=== PATIENT | male | born 1935 | race Caucasian/White ===

== ENCOUNTER 2017-04-15 14:43 | Inpatient (IN) | payer OTHER, MEDICARE ==
[~2017-04-15] VITALS: Ht 170.2 cm; Wt 68.0 kg
[2017-04-15 15:09] VITALS: BP 167/74; PULSE 85; RESP 18; TEMP 98; O2SAT 97
--- NOTE | 2017-04-15 15:33 | PD ---
HPI Chief Complaint: Fall Time Seen by Provider: 14:55 Travel History International Travel<30 days: No Contact w/Intl Traveler<30days: No Traveled to known affect area: No History of Present Illness HPI Patient is an 81-year-old male who presents to emergency room with complaints of fall. Patient reports that he lives at home by himself, reports that sometimes his son stops by the house to help him out. Patient reports that sometime this morning, he tripped on close on the floor, reports that he fell forward and hit his head. Patient reports that he was unable to get up by himself, he did have to wait for son to come home to help him. Patient reports that when he fell, he fell forward hitting his head on the floor. Patient is unsure if he suffered any loss of consciousness. Patient reports that he does take an aspirin a day, currently does not take any other anticoagulants. Patient reports at this time, he only has pains to his right forearm as he did suffer abrasions and skin tears to his right forearm. PFSH Past Medical History Narrative Medical Patient currently taking simvastatin, mirtazapine, allopurinol, metoprolol, omeprazole, fluoxetine, aspirin, vitamin D, vitamin B12 High Cholesterol: Yes GERD: Yes Hypertension: Yes Past Surgical History Surgical History: Unable to Obtain Social History Tobacco Use: No Allergies-Medications (Allergen,Severity, Reaction): Coded Allergies: No Known Allergies (Unverified , 04/15/17) Reported Meds & Prescriptions Reported Meds & Active Scripts Active Reported Aspirin Adult Low Strength (Aspirin) 81 Mg Tabdr 81 Mg PO DAILY Vitamin B-12 (Cyanocobalamin) Unknown Strength Tab 1 Tab PO DAILY Vitamin D-1000 (Cholecalciferol) 1,000 Unit Tab 1,000 Units PO DAILY Metoprolol Tartrate 25 Mg Tab 12.5 Mg PO BID Allopurinol 100 Mg Tab 100 Mg PO DAILY Remeron (Mirtazapine) 15 Mg Tab 7.5 Mg PO HS Zocor (Simvastatin) 10 Mg Tab 5 Mg PO HS Review of Systems General / Constitutional: No: Fever Eyes: No: Visual changes HENT: No: Headaches Cardiovascular: No: Chest Pain or Discomfort Respiratory: No: Shortness of Breath Gastrointestinal: No: Abdominal Pain Genitourinary: No: Dysuria Musculoskeletal: Positive: Pain (right sided forearm pain), Other (gait instability) Skin: No Rash Neurologic: No: Weakness Psychiatric: No: Depression Endocrine: No: Polydipsia Hematologic/Lymphatic: No: Easy Bruising Physical Exam Narrative GENERAL: Mild distress SKIN: Focused skin assessment warm/dry. Skin tears to right forearm HEAD: Atraumatic. Normocephalic. EYES: Pupils equal and round. No scleral icterus. No injection or drainage. ENT: No nasal bleeding or discharge. Mucous membranes pink and moist. NECK: Trachea midline. No JVD. CARDIOVASCULAR: Regular rate and rhythm. No murmur appreciated. RESPIRATORY: No accessory muscle use. Clear to auscultation. Breath sounds equal bilaterally. GASTROINTESTINAL: Abdomen soft, non-tender, nondistended. Hepatic and splenic margins not palpable. MUSCULOSKELETAL: No clubbing. No cyanosis. No edema. NEUROLOGICAL: Awake and alert. Data Data Last Documented VS Vital Signs Date Time Temp Pulse Resp B/P (MAP) Pulse Ox O2 Delivery O2 Flow Rate FiO2 04/15/17 17:32 95 16 121/81 (94) 95 Room Air 04/15/17 15:09 98.0 Orders Orders Electrocardiogram (04/15/17 15:15) Complete Blood Count With Diff (04/15/17 15:15) Comprehensive Metabolic Panel (04/15/17 15:15) Magnesium (Mg) (04/15/17 15:15) Ckmb (Isoenzyme) Profile (04/15/17 15:15) Troponin I (04/15/17 15:15) Act Partial Throm Time (Ptt) (04/15/17 15:15) Prothrombin Time / Inr (Pt) (04/15/17 15:15) Urinalysis - C+S If Indicated (04/15/17 15:15) Chest, Single Ap (04/15/17 15:15) Ct Brain W/O Iv Contrast(Rout) (04/15/17 15:15) Ct Cerv Spine W/O Contrast (04/15/17 15:15) Ecg Monitoring (04/15/17 15:15) Iv Access Insert/Monitor (04/15/17 15:15) Oximetry (04/15/17 15:15) Forearm (2vws) (04/15/17 ) CKMB (04/15/17 16:02) CKMB% (04/15/17 16:02) Sodium Chlor 0.9% 1000 Ml Inj (Ns 1000 M (04/15/17 18:15) Admit Order (Ed Use Only) (04/15/17 19:06) Labs Laboratory Tests Test 04/15/17 16:00 04/15/17 16:02 04/15/17 17:30 Prothrombin Time 10.6 SEC Prothromb Time International Ratio 1.0 RATIO Activated Partial Thromboplast Time 26.6 SEC White Blood Count 14.7 TH/MM3 Red Blood Count 3.91 MIL/MM3 Hemoglobin 12.1 GM/DL Hematocrit 35.9 % Mean Corpuscular Volume 91.8 FL Mean Corpuscular Hemoglobin 30.9 PG Mean Corpuscular Hemoglobin Concent 33.7 % Red Cell Distribution Width 14.0 % Platelet Count 181 TH/MM3 Mean Platelet Volume 7.3 FL Neutrophils (%) (Auto) 87.9 % Lymphocytes (%) (Auto) 4.9 % Monocytes (%) (Auto) 6.7 % Eosinophils (%) (Auto) 0.1 % Basophils (%) (Auto) 0.4 % Neutrophils # (Auto) 12.9 TH/MM3 Lymphocytes # (Auto) 0.7 TH/MM3 Monocytes # (Auto) 1.0 TH/MM3 Eosinophils # (Auto) 0.0 TH/MM3 Basophils # (Auto) 0.1 TH/MM3 CBC Comment DIFF FINAL Differential Comment Blood Urea Nitrogen 24 MG/DL Creatinine 1.32 MG/DL Random Glucose 87 MG/DL Total Protein 6.6 GM/DL Albumin 3.8 GM/DL Calcium Level 8.9 MG/DL Magnesium Level 1.9 MG/DL Alkaline Phosphatase 83 U/L Aspartate Amino Transf (AST/SGOT) 46 U/L Alanine Aminotransferase (ALT/SGPT) 27 U/L Total Bilirubin 1.2 MG/DL Sodium Level 140 MEQ/L Potassium Level 4.2 MEQ/L Chloride Level 107 MEQ/L Carbon Dioxide Level 21.8 MEQ/L Anion Gap 11 MEQ/L Estimat Glomerular Filtration Rate 52 ML/MIN Total Creatine Kinase 935 U/L Creatine Kinase MB 19.3 NG/ML Creatine Kinase MB % 2.1 % Troponin I 0.02 NG/ML Urine Color YELLOW Urine Turbidity CLEAR Urine pH 6.0 Urine Specific [place] 1.017 Urine Protein TRACE mg/dL Urine Glucose (UA) NEG mg/dL Urine Ketones 40 mg/dL Urine Occult Blood NEG Urine Nitrite NEG Urine Bilirubin NEG Urine Urobilinogen 2.0 MG/DL Urine Leukocyte Esterase NEG Urine RBC LESS THAN 1 /hpf Urine WBC LESS THAN 1 /hpf Microscopic Urinalysis Comment CULT NOT INDICATED MDM Medical Decision Making Medical Screen Exam Complete: Yes Emergency Medical Condition: Yes Medical Record Reviewed: Yes Interpretation(s) Vital Signs Date Time Temp Pulse Resp B/P (MAP) Pulse Ox O2 Delivery O2 Flow Rate FiO2 04/15/17 15:09 98.0 85 18 167/74 (105) 97 Differential Diagnosis ICH, Electrolyte abnormality, forearm strain/fracture, electrolyte abnormality, gait dysfunction Narrative Course During the course of the patients emergency department visit, the patients history, examination, and differential diagnosis were reviewed with the patient. The patient was placed on a monitoring analyst with oximetry and frequent blood pressure monitoring. The patient had an IV access obtained and blood work sent for analysis. The patients laboratory studies were reviewed and remarkable for: CBC & BMP Diagram 04/15/17 16:02 Total Protein 6.6, Albumin 3.8, Calcium Level 8.9, Magnesium Level 1.9, Alkaline Phosphatase 83, Aspartate Amino Transf (AST/SGOT) 46 H, Alanine Aminotransferase (ALT/SGPT) 27, Total Bilirubin 1.2 H CK MB 19.3, trop 0.02, ck total 935 UA: 40 ketones, neg nitrite, neg leuk esterase Radiology studies were reviewed and remarkable for: Last Impressions Head CT 04/15/171514 Signed Impressions: Service Date/Time: April 16:45 - CONCLUSION: 1. No acute intracranial process. 2. No evidence of acute infarct, hemorrhage, mass or edema. Daniel Thompson MD Chest X-Ray 04/15/171514 Signed Impressions: Service Date/Time: April 15:33 - CONCLUSION: 1. No acute cardiopulmonary disease. Mani Nicholas MD Cervical Spine CT 04/15/171514 Signed Impressions: Service Date/Time: April 16:47 - CONCLUSION: 1. No evidence of acute fracture or traumatic listhesis. 2. Moderate degenerative disc disease. 3. Left sided mild to moderate facet arthropathy. Daniel Thompson MD Radius/Ulna X-Ray 04/15/17 0000 Signed Impressions: Service Date/Time: April 15:36 - CONCLUSION: 1. Very small nearly punctate calcified density projecting along the ulnar aspect of the wrist soft tissues. 2. No acute fracture or dislocation. Mani Nicholas MD Patient's family at bedside, reports that patient was completely independent and a week ago, patient began to appear more altered. Reports that he has experienced tremors, has had episodes of forgetfulness and has been more dependent for ADL's at baseline. Reports that his goal is to get his father to move in with him soon . Patient at this time cannot be discharged from the hospital as he is unsafe to be discharged to home. He is not ambulatory and weak at this time; patient appears decompensated. Plan to admit overnight for rehydration and for PT evaluation. Diagnosis Primary Impression: Gait instability Additional Impressions: Altered mental status, unspecified Renal insufficiency Admitting Information Admitting Physician Requests: Observation Traci Hair DO Apr 15, 2017 15:33
--- NOTE | 2017-04-15 15:58 | RADRPT ---
EXAM DATE/TIME: 04/15/2017 15:33 [facility] COMPARISON: No previous studies available for comparison. INDICATIONS : Chest discomfort; fall today. MEDICAL HISTORY : Hypertension. SURGICAL HISTORY : None. ENCOUNTER: Initial ACUITY: 1 day PAIN SCORE: Non-responsive. LOCATION: Bilateral chest FINDINGS: A single view of the chest demonstrates the lungs to be symmetrically aerated without evidence of mas s, infiltrate or effusion. The cardiomediastinal contours are unremarkable. Osseous structures are intact. CONCLUSION: 1. No acute cardiopulmonary disease. Mani Nicholas MD on April 15, 2017 at 15:55 Board Certified Radiologist. This report was verified electronically.
--- NOTE | 2017-04-15 15:59 | RADRPT ---
EXAM DATE/TIME: 04/15/2017 15:36 [facility] COMPARISON: No previous studies available for comparison. INDICATIONS : Right forearm pain; fall today. MEDICAL HISTORY : None. SURGICAL HISTORY : None. ENCOUNTER: Initial ACUITY: 1 day PAIN SCORE: Non-responsive. LOCATION: Right forearm FINDINGS: Two view examination of the right forearm demonstrates no evidence of fracture or dislocation. Bony mineralization is normal. There is a very small nearly punctate calcified density projecting along t he ulnar aspect of the wrist. The soft tissue structures are intact. CONCLUSION: 1. Very small nearly punctate calcified density projecting along the ulnar aspect of the wrist soft t issues. 2. No acute fracture or dislocation. Mani Nicholas MD on April 15, 2017 at 15:56 Board Certified Radiologist. This report was verified electronically.
[2017-04-15 16:06] VITALS: O2SAT 97
[2017-04-15 16:16] LABS: AUTOMATED NEUTROPHIL # 12.9 TH/MM3 (1.8-7.7); BASOPHIL # 0.1 TH/MM3 (0-0.2); BASOPHIL % 0.4 % (0.0-2.0); EOSINOPHIL % 0.1 % (0.0-4.0); HEMATOCRIT 35.9 % (39.0-51.0); HEMO FLAGS DIFF FINAL; LYMPH % 4.9 % (9.0-44.0); LYMPHOCYTE # 0.7 TH/MM3 (1.0-4.8); MEAN CELL VOLUME 91.8 FL (80.0-100.0); MEAN CORPUSCULAR HEMOGLOBIN 30.9 PG (27.0-34.0); MEAN CORPUSCULAR HGB CONC 33.7 % (32.0-36.0); MONO % 6.7 % (0.0-8.0); NEUT % 87.9 % (16.0-70.0); PLATELET COUNT 181 TH/MM3 (150-450); RED BLOOD COUNT 3.91 MIL/MM3 (4.50-5.90); WHITE BLOOD COUNT 14.7 TH/MM3 (4.0-11.0)
[2017-04-15 16:29] LABS: APTT (PATIENT) 26.6 SEC (24.3-30.1); PROTHROMBIN TIME - PATIENT 10.6 SEC (9.8-11.6)
[2017-04-15 16:42] LABS: ALT (GPT) 27 U/L (12-78); ANION GAP 11 MEQ/L (5-15); BICARBONATE 21.8 MEQ/L (21.0-32.0); BLOOD UREA NITROGEN 24 MG/DL (7-18); CHLORIDE 107 MEQ/L (98-107); GLOMERULAR FILTRATION RATE 52 ML/MIN (>89); MAGNESIUM 1.9 MG/DL (1.5-2.5); POTASSIUM 4.2 MEQ/L (3.5-5.1); SODIUM (NA) 140 MEQ/L (136-145)
[2017-04-15 16:56] LABS: ALKALINE PHOSPHATASE 83 U/L (45-117); AST (GOT) 46 U/L (15-37); CREATINE KINASE 935 U/L (39-308); TOTAL BILIRUBIN ADULT 1.2 MG/DL (0.2-1.0)
[2017-04-15 17:08] LABS: CKMB 19.3 NG/ML (0.5-3.6)
--- NOTE | 2017-04-15 17:10 | RADRPT ---
EXAM DATE/TIME: 04/15/2017 16:45 [facility] COMPARISON: No previous studies available for comparison. INDICATIONS : Trauma post fall this am . RADIATION DOSE: 69.00 CTDIvol (mGy) MEDICAL HISTORY : UNKNOWN PT AMS. SURGICAL HISTORY : UNKNOWN PT AMS. ENCOUNTER: Initial ACUITY: 1 day PAIN SCALE: 0/10 LOCATION: Bilateral cranial TECHNIQUE: Multiple contiguous axial images were obtained of the head. Using automated exposure control and adj ustment of the mA and/or kV according to patient size, radiation dose was kept as low as reasonably a chievable to obtain optimal diagnostic quality images. DICOM format image data is available electro nically for review and comparison. FINDINGS: CEREBRUM: Generalized volume loss is noted. There is no evidence of acute infarct, hemorrhage, mass or edema. T here are no extra-axial fluid collections. POSTERIOR FOSSA: The cerebellum and brainstem are intact. The 4th ventricle is midline. The cerebellopontine angle i s unremarkable. EXTRACRANIAL: The visualized portion of the orbits is intact. SKULL: The calvaria is intact. No evidence of skull fracture. CONCLUSION: 1. No acute intracranial process. 2. No evidence of acute infarct, hemorrhage, mass or edema. Daniel Thompson MD on April 15, 2017 at 17:07 Board Certified Radiologist. This report was verified electronically.
[2017-04-15 17:32] VITALS: BP 121/81; PULSE 95; RESP 16; O2SAT 95
--- NOTE | 2017-04-15 17:32 | RADRPT ---
EXAM DATE/TIME: 04/15/2017 16:47 [facility] COMPARISON: No previous studies available for comparison. INDICATIONS : Trauma post fall this am . RADIATION DOSE: 34.64 CTDIvol (mGy) MEDICAL HISTORY : UNKNOWN PT AMS. SURGICAL HISTORY : UNKNOWN PT AMS. ENCOUNTER: Initial ACUITY: 1 day PAIN SCALE: 0/10 LOCATION: Bilateral neck TECHNIQUE: Volumetric scanning of the cervical spine was performed. Multiplanar reconstructions in the sagittal, coronal and oblique axial planes were performed. Using automated exposure control and adjustment o f the mA and/or kV according to patient size, radiation dose was kept as low as reasonably achievable to obtain optimal diagnostic quality images. DICOM format image data is available electronically f or review and comparison. FINDINGS: Craniocervical and cervical vertebral body alignment is well maintained. There is no evidence of acute fracture or traumatic listhesis. Posterior elements are intact. Facet joints are satisfactory aligned. Moderate facet arthropathy is identified on the left at the C2-3, C3-4, C4-5 and C5-6 levels. Mild/moderate degenerative disc disease with disc space narrowing and marginal spondylosis is noted. There are no soft tissue abnormalities. CONCLUSION: 1. No evidence of acute fracture or traumatic listhesis. 2. Moderate degenerative disc disease. 3. Left sided mild to moderate facet arthropathy. Daniel Thompson MD on April 15, 2017 at 17:27 Board Certified Radiologist. This report was verified electronically.
[2017-04-15 17:40] LABS: BLOOD, URINE NEG (NEG); GLUCOSE,URINE NEG (NEG); KETONE, URINE 40 mg/dL (NEG); NITRITE,URINE NEG (NEG); URINE COLOR YELLOW (YELLW/STRAW)
[2017-04-15 17:41] LABS: COMMENT (UR) CULT NOT INDICATED; CULTURE IF INDICATED CULT NOT INDICATED
[2017-04-15] MEDS ORDERED: SODIUM CHLOR 0.9% 1000 ML INJ 1,000 ML IV ONE (18:15)
[2017-04-15] MEDS ORDERED: REME15TA PO (18:59)
[2017-04-15] MEDS ORDERED: ALLO100T PO (18:59)
[2017-04-15] MEDS ORDERED: VITA10002 PO (18:59)
[2017-04-15] MEDS ORDERED: VITA1000 PO (18:59)
[2017-04-15] MEDS ORDERED: ASPI81TA16 PO (18:59)
[2017-04-15] MEDS ORDERED: METO25TA3 PO (18:59)
[2017-04-15] MEDS ORDERED: ZOCO10TA PO (18:59)
[2017-04-15] MEDS ORDERED: NALOXONE HCL 0.4 MG/ML AMP IV PUSH PRN (19:15)
[2017-04-15] MEDS ORDERED: SODIUM CHLORIDE 0.9% FLUSH 10 ML FLUSH IV FLUSH PRN (19:15)
--- NOTE | 2017-04-15 19:54 | HHI.HP ---
[facility] Service [facility] Primary Care Physician Sam Edmonds MD Admission Diagnosis Gait instability, renal insuffiency, altered mental status Diagnoses: Travel History International Travel<30 Days: No Contact w/Intl Traveler <30 Da: No Traveled to Known Affected Are: No History of Present Illness hx from patient, son and daughter in law at bedside, ER MD and nursing staff lives by self, food delivered by family usually walks on his own would not use walker family found him in the morning around 200p.m., fell around 730a.m. per family thinking he ususally gets up aroudn then found him in the bathroom was not dressed, just had his shirt on, and underwear at the knees tile floor, hit his head, scalp with blood family called 911 right away since then shaking a lot hallucinating per always had one hand tremor but thsi is out of control on ASA at home pt himself denies any symptoms now but staring into space speech is not so clear never been in hospital - except in his 50s for his cardiac angioplasty x 2 never had seizure no anxiety or pain meds, not a drinker fell out of bed twice about a year ago, but never needed to go hospital Review of Systems ROS Limitations: Altered Mental Status, Poor Historian Except as stated in HPI: all other systems reviewed are Neg Past Family Social History Past Medical History htn cad- angioplasty x 2 copd / emphysema- was on inhalor prn at home but does not use it restless leg Past Surgical History angioplasty x 2 no other sx Allergies: Coded Allergies: No Known Allergies (Unverified , 04/15/17) Family History his mom- cancer his father- stroke Social History used to smoke, quit 1968 no etoh abuse no drugs lives alone Physical Exam Vital Signs Vital Signs Date Time Temp Pulse Resp B/P (MAP) Pulse Ox O2 Delivery O2 Flow Rate FiO2 04/15/17 17:32 95 16 121/81 (94) 95 Room Air 04/15/17 16:06 97 04/15/17 15:55 97 Room Air 04/15/17 15:09 98.0 85 18 167/74 (105 97 Physical Exam GENERAL: This is elderly gentleman, looks confused, staring into space, tremors of bilateral UE SKIN: multiple echymosis and bruising. Thin senile fragile skin HEAD: Atraumatic. Normocephalic. No temporal or scalp tenderness. EYES: No scleral icterus. No injection or drainage. ENT: Nose without bleeding, purulent drainage or septal hematoma. Airway patent. NECK: Trachea midline. No JVD . limited exam as pt is contracted in most parts CARDIOVASCULAR: Regular rate and rhythm without murmurs, gallops, or rubs. RESPIRATORY: Clear to auscultation. Breath sounds equal bilaterally. No wheezes , rales, or rhonchi. GASTROINTESTINAL: Abdomen soft, non-tender, nondistended. No guarding. EXTREMITIES: no calf asymmetry or edema. Somewhat tense contracted lower extremities. However does not seem to have any pains. NEUROLOGICAL: Awake. Somewhat confused. Tremors bilaterally. There is able to give yes or no answers. Motor and sensory grossly within normal limits. Normal speech though difficult to understand him.. Laboratory Laboratory Tests Test 04/15/17 16:00 04/15/17 16:02 04/15/17 17:30 Prothrombin Time 10.6 Prothromb Time International Ratio 1.0 Activated Partial Thromboplast Time 26.6 White Blood Count 14.7 Red Blood Count 3.91 Hemoglobin 12.1 Hematocrit 35.9 Mean Corpuscular Volume 91.8 Mean Corpuscular Hemoglobin 30.9 Mean Corpuscular Hemoglobin Concent 33.7 Red Cell Distribution Width 14.0 Platelet Count 181 Mean Platelet Volume 7.3 Neutrophils (%) (Auto) 87.9 Lymphocytes (%) (Auto) 4.9 Monocytes (%) (Auto) 6.7 Eosinophils (%) (Auto) 0.1 Basophils (%) (Auto) 0.4 Neutrophils # (Auto) 12.9 Lymphocytes # (Auto) 0.7 Monocytes # (Auto) 1.0 Eosinophils # (Auto) 0.0 Basophils # (Auto) 0.1 CBC Comment DIFF FINAL Differential Comment Blood Urea Nitrogen 24 Creatinine 1.32 Random Glucose 87 Total Protein 6.6 Albumin 3.8 Calcium Level 8.9 Magnesium Level 1.9 Alkaline Phosphatase 83 Aspartate Amino Transf (AST/SGOT) 46 Alanine Aminotransferase (ALT/SGPT) 27 Total Bilirubin 1.2 Sodium Level 140 Potassium Level 4.2 Chloride Level 107 Carbon Dioxide Level 21.8 Anion Gap 11 Estimat Glomerular Filtration Rate 52 Total Creatine Kinase 935 Creatine Kinase MB 19.3 Creatine Kinase MB % 2.1 Troponin I 0.02 Urine Color YELLOW Urine Turbidity CLEAR Urine pH 6.0 Urine Specific [place] 1.017 Urine Protein TRACE Urine Glucose (UA) NEG Urine Ketones 40 Urine Occult Blood NEG Urine Nitrite NEG Urine Bilirubin NEG Urine Urobilinogen 2.0 Urine Leukocyte Esterase NEG Urine RBC LESS THAN 1 Urine WBC LESS THAN 1 Microscopic Urinalysis Comment CULT NOT INDICATED Result Diagram: 04/15/17 1602 04/15/17 1602 Imaging Last [address] 04/15/17 1515 Signed Impressions: Service Date/Time: April 16:45 - CONCLUSION: 1. No acute intracranial process. 2. No evidence of acute infarct, hemorrhage, mass or edema. Daniel Thompson MD Chest X-Ray 04/15/17 1515 Signed Impressions: Service Date/Time: April 15:33 - CONCLUSION: 1. No acute cardiopulmonary disease. Mani Nicholas MD Cervical Spine CT 04/15/17 1515 Signed Impressions: Service Date/Time: April 16:47 - CONCLUSION: 1. No evidence of acute fracture or traumatic listhesis. 2. Moderate degenerative disc disease. 3. Left sided mild to moderate facet arthropathy. Daniel Thompson MD Radius/Ulna X-Ray 04/15/17 0000 Signed Impressions: Service Date/Time: April 15:36 - CONCLUSION: 1. Very small nearly punctate calcified density projecting along the ulnar aspect of the wrist soft tissues. 2. No acute fracture or dislocation. Mani Nicholas MD Captej VTE Risk Assessment Caprini VTE Risk Assessment: Mod/High Risk (score >= 2) Caprini Risk Assessment Model Point Value = 1 Point Value = 2 Point Value = 3 Point Value = 5 Age 41-60 Minor surgery BMI > 25 kg/m2 Swollen legs Varicose veins or History of unexplained or recurrent spontaneous Oral contraceptives or hormone replacement Sepsis (< 1 month) Serious lung disease, including pneumonia (< 1 month) Abnormal pulmonary function Acute myocardial infarction Congestive heart failure (< 1 month) History of inflammatory bowel disease Medical patient at bed rest Age 61-74 Arthroscopic surgery Major open surgery (> 45 min) Laparoscopic surgery (> 45 min) Malignancy Confined to bed (> 72 hours) Immobilizing plaster cast Central venous access Age >= 75 History of VTE Family history of VTE Factor V Leiden Prothrombin [id number] Lupus anticoagulant Anticardiolipin antibodies Elevated serum homocysteine Heparin-induced thrombocytopenia Other congenital or acquired thrombophilia Stroke (< 1 month) Elective arthroplasty Hip, pelvis, or leg fracture Acute spinal cord injury (< 1 month) Prophylaxis Regimen Total Risk Factor Score Risk Level Prophylaxis Regimen 0-1 Low Early ambulation 2 Moderate Order ONE of the following: *Sequential Compression Device (SCD) *Heparin 5000 units SQ BID 3-4 Higher Order ONE of the following medications: *Heparin 5000 units SQ TID *Enoxaparin/Lovenox 40 mg SQ daily (WT < 150 kg, CrCl > 30 mL/min) *Enoxaparin/Lovenox 30 mg SQ daily (WT < 150 kg, CrCl > 10-29 mL/min) *Enoxaparin/Lovenox 30 mg SQ BID (WT < 150 kg, CrCl > 30 mL/min) AND/OR *Sequential Compression Device (SCD) 5 or more Highest Order ONE of the following medications: *Heparin 5000 units SQ TID (Preferred with Epidurals) *Enoxaparin/Lovenox 40 mg SQ daily (WT < 150 kg, CrCl > 30 mL/min) *Enoxaparin/Lovenox 30 mg SQ daily (WT < 150 kg, CrCl > 10-29 mL/min) *Enoxaparin/Lovenox 30 mg SQ BID (WT < 150 kg, CrCl > 30 mL/min) AND *Sequential Compression Device (SCD) Assessment and Plan Assessment and Plan Impression: Altered mental status Status post fall Possible syncope Possible CVA Possible seizures Possible meningitis Leukocytosis with left shift Acute renal insufficiency Elevated CPK from being on the floor/rhabdo htn cad- angioplasty x 2 copd / emphysema- was on inhalor prn at home but does not use it restless leg Plan: Ultrasound of the carotids. Echocardiogram in a.m. Permissive hypertension. MRI and MRA of the brain. Drawn blood cultures 2 now. Start patient on DEXA. Meningitic doses of antibiotics. EGD in a.m. Neurology consult. Monitor for fever trends. DVT prophylaxis with heparin. GI prophylaxis on ranitidine. change to full admit Discussed Condition With patient, ER , nursing staff Mike Junior MD Apr 15, 2017 19:54
[2017-04-15] MEDS: AMPICILLIN INJ 2,000 MG in SODIUM CHLORIDE 0.9% INJ 100 ML IV SCH (20:00)
[2017-04-15] MEDS ORDERED: Vancomycin Consult Pharmacy 1 EA OTHER SCH (20:00)
[2017-04-15] MEDS ORDERED: DEXAMETHASONE SOD PHOS 20 MG/5 ML VIAL IV PUSH ONE (20:30)
[2017-04-15] MEDS ORDERED: VANCOMYCIN INJ 1,750 MG in SODIUM CHLORID 0.9% 500 ML INJ 500 ML IV ONE (21:00)
[2017-04-15] MEDS: PRAVASTATIN SOD 10 MG TAB PO SCH (21:00)
--- NOTE | 2017-04-15 22:46 | RADRPT ---
EXAM DATE/TIME: 04/15/2017 21:47 [facility] COMPARISON: No previous studies available for comparison. INDICATIONS : Altered mental status. CONTRAST: 13 cc Omniscan (gadodiamide) IV MEDICAL HISTORY : Hypertension. Hypercholesterolemia. Gastroesophageal reflux disease. COPD. SURGICAL HISTORY : Angioplasty. ENCOUNTER: Subsequent ACUITY: 1 day PAIN SCORE: Nonresponsive. LOCATION: cranial TECHNIQUE: Multiplanar, multisequence MRI of the brain was performed without contrast. FINDINGS: Mild white matter ischemic change. No definite evidence for recent infarct. No mass effect or midline shift. There is cortical volume loss. No hydrocephalus. CONCLUSION: 1. No acute findings. Mild white matter ischemic changes. Bernard Arana MD on April 15, 2017 at 22:41 Board Certified Radiologist. This report was verified electronically.
--- NOTE | 2017-04-15 22:50 | RADRPT ---
EXAM DATE/TIME: 04/15/2017 21:47 [facility] COMPARISON: No previous studies available for comparison. INDICATIONS : Altered mental status. MEDICAL HISTORY : Hypertension. Hypercholesterolemia. Gastroesophageal reflux disease. COPD. SURGICAL HISTORY : Angioplasty. ENCOUNTER: Subsequent ACUITY: 1 day PAIN SCORE: Nonresponsive. LOCATION: cranial Please note a normal MRA of the brain does not entirely exclude the possibility of a small aneurysm, nor the possibility of distal intracranial vessel disease. TECHNIQUE: 3D time of flight MRA was performed. Source images, multiplanar STS MIP, and 3D volume MIP reconstru ctions were reviewed. FINDINGS: Examination is suboptimal and severely degraded by motion artifact. Anterior cerebral arteries not we ll assessed. There is flow in the proximal middle cerebral arteries. Also flow in the distal internal carotid arteries and basilar artery. Posterior cerebral arteries also not well assessed. CONCLUSION: 1. Suboptimal exam degraded by motion artifact as above. Bernard Arana MD on April 15, 2017 at 22:47 Board Certified Radiologist. This report was verified electronically.
--- NOTE | 2017-04-15 23:04 | RADRPT ---
EXAM DATE/TIME: 04/15/2017 21:37 [place] COMPARISON: No previous studies available for comparison. INDICATIONS : Cerebrovascular accident. MEDICAL HISTORY : Hypercholesterolemia. Hypertension. Gastroesophageal reflux disease. SURGICAL HISTORY : None. ENCOUNTER: Initial ACUITY: 1 day PAIN SCORE: Nonresponsive. LOCATION: Bilateral neck PEAK SYSTOLIC VELOCITIES (cm/sec): ICA/CCA RATIO: Right: 1.0 Left: 0.8 ICA: Right: 117.3 Left: 112.1 CCA: Right: 117.3 Left: 141.6 ECA: Right: 143.5 Left: 153.4 VERTEBRAL: Right: 65.6 antegrade Left: 65.9 antegrade Elevated flow velocities and ICA/CCA ratios have been found to correlate with increased degrees of vessel stenosis, calculated as percentage of diameter relative to a normal segment of distal ICA/CCA FINDINGS: RIGHT CAROTID: No significant stenosis is visualized. The waveforms are within normal limits. LEFT CAROTID: No significant stenosis is visualized. The waveforms are within normal limits. VERTEBRAL ARTERIES: Antegrade flow is seen in both vertebral arteries. MISCELLANEOUS: None. CONCLUSION: 1. No hemodynamically significant stenosis identified in the carotid arteries bilaterally. Mild visib le plaque formation. Bernard Arana MD on April 15, 2017 at 23:02 Board Certified Radiologist. This report was verified electronically.
[2017-04-15 23:20] VITALS: BP 140/70; PULSE 115; RESP 18; TEMP 98.8; O2SAT 94
[2017-04-15] MEDS: cefTRIAXone INJ 2,000 MG in SODIUM CHLORIDE 0.9% INJ 100 ML IV SCH (23:58)
[2017-04-16] VITALS (7 sets, daily range): BP systolic 125–213; BP diastolic 61–97; PULSE 86–98; RESP 18–20; TEMP 96.9–99.7; O2SAT 96–99
[2017-04-16] MEDS: SODIUM CHLORIDE 0.9% FLUSH 10 ML FLUSH IV FLUSH SCH ×3 (00:02→20:50)
[2017-04-16] MEDS: MIRTAZAPINE 15 MG TAB PO SCH ×2 (00:04→20:51)
[2017-04-16] MEDS: HEPARIN SODIUM - SQ 10,000 UNITS/ML VIAL SQ SCH ×3 (00:05→20:51)
[2017-04-16] MEDS: PRAVASTATIN SOD 10 MG TAB PO SCH ×2 (00:05→20:51)
[2017-04-16 00:34] LABS: AUTOMATED NEUTROPHIL # 9.9 TH/MM3 (1.8-7.7); BASOPHIL # 0.1 TH/MM3 (0-0.2); BASOPHIL % 0.7 % (0.0-2.0); EOSINOPHIL % 0.1 % (0.0-4.0); HEMO FLAGS DIFF FINAL; LYMPH % 7.5 % (9.0-44.0); LYMPHOCYTE # 0.9 TH/MM3 (1.0-4.8); MEAN CELL VOLUME 91.6 FL (80.0-100.0); MEAN CORPUSCULAR HEMOGLOBIN 31.4 PG (27.0-34.0); MEAN CORPUSCULAR HGB CONC 34.3 % (32.0-36.0); MONO % 7.9 % (0.0-8.0); NEUT % 83.8 % (16.0-70.0); PLATELET COUNT 161 TH/MM3 (150-450); RED CELL DISTRIBUTION WIDTH 14.3 % (11.6-17.2); WHITE BLOOD COUNT 11.9 TH/MM3 (4.0-11.0)
[2017-04-16 00:42] LABS: APTT (PATIENT) 27.9 SEC (24.3-30.1); INTERNATIONAL NORMALIZED RATIO 1.1 RATIO; PROTHROMBIN TIME - PATIENT 10.7 SEC (9.8-11.6)
[2017-04-16] MEDS: AMPICILLIN INJ 2,000 MG in SODIUM CHLORIDE 0.9% INJ 100 ML IV SCH ×6 (00:53→19:56)
[2017-04-16 00:59] LABS: TOTAL BILIRUBIN ADULT 1.2 MG/DL (0.2-1.0)
[2017-04-16 07:19] LABS: AUTOMATED NEUTROPHIL # 9.3 TH/MM3 (1.8-7.7); BASOPHIL % 0.1 % (0.0-2.0); HEMATOCRIT 33.1 % (39.0-51.0); HEMO FLAGS DIFF FINAL; LYMPH % 3.7 % (9.0-44.0); LYMPHOCYTE # 0.4 TH/MM3 (1.0-4.8); MEAN CELL VOLUME 92.7 FL (80.0-100.0); MEAN CORPUSCULAR HEMOGLOBIN 31.6 PG (27.0-34.0); MEAN CORPUSCULAR HGB CONC 34.1 % (32.0-36.0); MONO % 0.9 % (0.0-8.0); NEUT % 95.3 % (16.0-70.0); PLATELET COUNT 149 TH/MM3 (150-450); RED BLOOD COUNT 3.57 MIL/MM3 (4.50-5.90); RED CELL DISTRIBUTION WIDTH 14.1 % (11.6-17.2); WHITE BLOOD COUNT 9.8 TH/MM3 (4.0-11.0)
[2017-04-16 07:43] LABS: BICARBONATE 17.2 MEQ/L (21.0-32.0); POTASSIUM 4.3 MEQ/L (3.5-5.1)
[2017-04-16] MEDS: ASPIRIN EC 81 MG TABEC PO SCH (07:49)
[2017-04-16] MEDS: PANTOPRAZOLE SODIUM 40 MG VIAL IV PUSH SCH ×2 (07:49→20:51)
[2017-04-16] MEDS: cefTRIAXone INJ 2,000 MG in SODIUM CHLORIDE 0.9% INJ 100 ML IV SCH ×2 (07:52→20:50)
[2017-04-16] MEDS: SODIUM CHLOR 0.9% 1000 ML INJ 1,000 ML IV SCH ×2 (07:52)
--- NOTE | 2017-04-16 12:56 | MG ---
cc: ANDREY LANTIGUA M.D. Lab No: [id number]____ Date: 04/16/2017 Age: 81 Sex: M Race: __ REQUESTING PHYSICIAN Dr. Junior INDICATIONS An EEG was obtained on this 81-year-old patient with a history of fall, history of tremoring, possible seizures. DESCRIPTION The patient is described as awake during the study. The EEG is showing a lot of artifact which at times obscures most of the EEG activity. There appears to be some beta rhythms and there are theta and delta rhythms bilaterally. The patient seems awake and there is a lot of eye movement artifact. The study is probably showing awake and asleep recording without any distinct asymmetry. Photic stimulation was unremarkable. INTERPRETATION Abnormal EEG because of background slowing bilaterally suggesting either bilateral structural abnormalities or moderate diffuse disturbance of cerebral function. Epileptiform feature is not present. MD JOSUE Phillips/BINH /12:03 PM /12:45 PM
--- NOTE | 2017-04-16 13:40 | MB ---
cc: ANDREY LANTIGUA M.D. DATE OF CONSULTATION 04/16/2017 REASON FOR CONSULTATION This is an 81-year-old seen in neurological consultation today. He was brought to the hospital yesterday. The patient lives alone. The son helps the patient as well as [id number]. They were at bedside. Yesterday he was apparently on the ground four or five hours by the time the family found him on the bathroom in the afternoon. He was disoriented. He is speaking gibberish and at times apparently hallucinating. He was brought to the hospital. He is doing a little bit better today. Last evening reportedly he was having some rigid tremoring that were even possibly considered seizures. The patient has a benign medical history. He had a coronary angioplasty x2 in the 50s and has been living alone, semi-independent. He walks without a cane or a walker. Apparently he is conversant, alert, oriented and participated. There is some COPD. He does not smoke, no alcohol. PHYSICAL EXAM Exam shows the patient to be awake, alert, hard of hearing. He knew his age, but was quite surprised when I told he was in the hospital. Earlier he told his son he was thinking this was [place]. The patient recognized the family at bedside. He follows simple commands. He could not tell me the date or the month. He is rather frail with a lot of bruising in both upper extremities, maximum distal to the elbows with some bilateral hand stiffness, almost like contractures and it is a bit difficult to open his hands intermittently. He started gripping on command possibly right better than left. He moves the lower extremities with a great deal of limitation on the bedside exam as he is also rigid there. His reflexes were trace, present at the elbows and knees, possibly present at the ankles as well. Plantar response is equivocal bilaterally. ASSESSMENT Acute encephalopathic state, undetermined cause. He had a fall yesterday and subsequent to that time he has been obviously confused and he is frail gentleman, but was living alone and ambulatory according to the family. He has had some trembling on the right more than left hand for the past couple of years, but no diagnosis of Parkinson's has been made. He has had a number of studies during this admission including carotid ultrasound, MRA head which was limited, but the MRI brain shows no acute findings, there is mild microvascular disease. CT cervical spine also showing no acute findings. White count yesterday 14.7 today is 9.8, platelets 181 yesterday and 149 today, hemoglobin 12.1 yesterday 11.3 today. Sodium and potassium normal. BUN 24, creatinine 1.3, glucose yesterday 87, calcium 8.9, AST 46 which is slightly up. ALT normal. CPK elevated to 935. He has some rhabdomyolysis. He might be septic, I believe blood cultures have been drawn. An EEG was obtained and I have reviewed the study which shows no epileptiform discharge. He had a lot of tremoring with some rigidity last evening, it could have been seizure but for now I would not use anticonvulsants. He is on antibiotics, vancomycin, ampicillin and ceftriaxone. I will follow the neurological care. Continue the aspirin and statin. Thank you for asking us to assist in his care. MD JOSUE Phillips/BINH /12:10 PM /1:20 PM
--- NOTE | 2017-04-16 14:44 | HHI.PR ---
Subjective Remarks Pt staring at the ceiling. Has difficulties answering questions. when asked where he is, he states "I'm here" cannot tell me he is in the hospital. able to tell me his name but cannot give me the year or his . Pt ate some of his food , after repeating myself multiple times states he ate and doesn't want any more. discussed w RN, per family member, pt was independent, not using a walker until yesterday Objective Vitals Vital Signs Date Time Temp Pulse Resp B/P (MAP) Pulse Ox O2 Delivery O2 Flow Rate FiO2 04/16/17 12:00 96.9 86 18 159/70 (99) 96 04/16/17 08:00 18 04/16/17 08:00 98.0 90 142/77 (98) 97 04/16/17 04:00 97.5 96 20 125/73 (90) 97 04/15/17 23:20 98.8 115 18 140/70 (93) 94 04/15/17 17:32 95 16 121/81 (94) 95 Room Air 04/15/17 16:06 97 04/15/17 15:55 97 Room Air 04/15/17 15:09 98.0 85 18 167/74 (105) 97 I/O 04/15/17 04/15/17 04/15/17 04/16/17 04/16/17 04/16/17 06:59 14:59 22:59 06:59 14:59 22:59 Intake Total 1000 ml 50 ml Output Total 200 ml Balance 1000 ml -150 ml Intake Oral 50 ml IV Total 1000 ml Output Urine Total 200 ml # Voids 1 # Bowel Movements 0 Result Diagram: 04/16/17 0604/16/17625 Imaging Last Impressions Head CT 04/15/171514 Signed Impressions: Service Date/Time: April 16:45 - CONCLUSION: 1. No acute intracranial process. 2. No evidence of acute infarct, hemorrhage, mass or edema. Daniel Thompson MD Chest X-Ray 04/15/171514 Signed Impressions: Service Date/Time: April 15:33 - CONCLUSION: 1. No acute cardiopulmonary disease. Mani Nicholas MD Cervical Spine CT 04/15/171514 Signed Impressions: Service Date/Time: April 16:47 - CONCLUSION: 1. No evidence of acute fracture or traumatic listhesis. 2. Moderate degenerative disc disease. 3. Left sided mild to moderate facet arthropathy. Daniel Thompson MD Radius/Ulna X-Ray 04/15/17 0000 Signed Impressions: Service Date/Time: April 15:36 - CONCLUSION: 1. Very small nearly punctate calcified density projecting along the ulnar aspect of the wrist soft tissues. 2. No acute fracture or dislocation. Mani Nicholas MD Head Magnetic Resonance Angiography 04/15/17 0000 Signed Impressions: Service Date/Time: April 21:47 - CONCLUSION: 1. Suboptimal exam degraded by motion artifact as above. Bernard Arana MD Carotid Artery Ultrasound 04/15/17 0000 Signed Impressions: Service Date/Time: April 21:37 - CONCLUSION: 1. No hemodynamically significant stenosis identified in the carotid arteries bilaterally. Mild visible plaque formation. Bernard Arana MD Brain MRI 04/15/17 0000 Signed Impressions: Service Date/Time: April 21:47 - CONCLUSION: 1. No acute findings. Mild white matter ischemic changes. Bernard Arana MD Objective Remarks GENERAL: This is elderly gentleman, looks confused, staring into space, tremors of bilateral UE SKIN: multiple echymosis and bruising. Thin senile fragile skin ENT: Nose without drainage. Airway patent. NECK: Trachea midline CARDIOVASCULAR: Regular rate and rhythm without murmurs RESPIRATORY: Clear to auscultation. Breath sounds equal bilaterally. No wheezes GASTROINTESTINAL: Abdomen soft, tender w palpation in the suprapubic area and seems full EXTREMITIES: Somewhat tense contracted lower extremities. However does not seem to have any pains. NEUROLOGICAL: Awake. confused. Tremors bilaterally. pt staring into space most of the time. doesn't answer all questions A/P Assessment and Plan Altered mental status/Status post unwitnessed fall/Leukocytosis with left shift : work up for CVA has been unremarkable thus far. CT head w no acute intracranial process w no evidence of acute infarct, hemorrhage of mass. Brain MRI neg. Carotid u/s w no significant stenosis. Head MRA was a suboptimal exam. ECHO ordered and pending. Neuro also evaluated the pt, EEG didn't show any Epileptiform features. Concerns for possible sepsis although source not known at this time. blood cx neg x 1 day and repeat blood cx pending. Pt on ceftriaxone and ampicillin. Pt did get a dose of vanco in ED. I will go ahead and get an ID consult for further assistance/eval/recs. Unsure if this would be a case of meningitis as there are no fevers thus far and pt not complaining of pain. Leukocytosis has resolved but pt is on abx. u/a unremarkable, chest x-ray neg. Will obtain a ST eval for cognition and swallow eval for recs. PT eval in place as well. Rhabdomyolysis: s/p fall. continue IVFs. encourage po hydration. CPK 935. continue to monitor trend. Acute renal insufficiency: now resolved. Cr 1.32-->1.28 copd / emphysema- was on inhaler prn at home but does not use it HTN; home med resumed. vasotec prn restless leg/ tremors: chronic DVT prophylaxis with heparin. GI prophylaxis on ranitidine. Discharge Planning neurology following ID consulted f/u blood cx. continue IV abx for now. PT/ST consulted Ana Montana MD Apr 16, 2017 14:44
[2017-04-16] MEDS ORDERED: PILL SPLITTER OTHER PRN (15:15)
[2017-04-16] MEDS: METOPROLOL TARTRATE 25 MG TAB PO SCH (20:51)
[2017-04-17] VITALS (9 sets, daily range): BP systolic 132–166; BP diastolic 64–89; PULSE 63–77; RESP 18–21; TEMP 97.1–98.8; O2SAT 94–97
[2017-04-17] MEDS: AMPICILLIN INJ 2,000 MG in SODIUM CHLORIDE 0.9% INJ 100 ML IV SCH ×3 (00:16→08:23)
[2017-04-17] MEDS: SODIUM CHLOR 0.9% 1000 ML INJ 1,000 ML IV SCH ×3 (04:22→21:24)
[2017-04-17 04:47] LABS: AUTOMATED NEUTROPHIL # 9.4 TH/MM3 (1.8-7.7); BASOPHIL % 0.2 % (0.0-2.0); EOSINOPHIL % 0.1 % (0.0-4.0); HEMATOCRIT 29.3 % (39.0-51.0); HEMO FLAGS DIFF FINAL; LYMPH % 8.2 % (9.0-44.0); LYMPHOCYTE # 0.9 TH/MM3 (1.0-4.8); MEAN CELL VOLUME 93.5 FL (80.0-100.0); MEAN CORPUSCULAR HEMOGLOBIN 31.6 PG (27.0-34.0); MEAN CORPUSCULAR HGB CONC 33.9 % (32.0-36.0); MONO % 8.1 % (0.0-8.0); NEUT % 83.4 % (16.0-70.0); PLATELET COUNT 134 TH/MM3 (150-450); RED BLOOD COUNT 3.14 MIL/MM3 (4.50-5.90); RED CELL DISTRIBUTION WIDTH 14.3 % (11.6-17.2); WHITE BLOOD COUNT 11.3 TH/MM3 (4.0-11.0)
[2017-04-17 05:03] LABS: BICARBONATE 18.8 MEQ/L (21.0-32.0); POTASSIUM 3.8 MEQ/L (3.5-5.1)
[2017-04-17 05:19] LABS: CKMB 6.3 NG/ML (0.5-3.6)
--- NOTE | 2017-04-17 07:28 | HHI.PR ---
Review/Management Daily Summary 04/17 awakened, some myoclonic hands/arms upon movement speech same. utters few words and follows some commands not epileptiform eeg encephalopathy, ??sepsis at least appearing stable could LP him but doubt of meningitis Subjective Subjective Comments spoke to RN unchanged overnight Active Medications Current Medications Medications (Trade) Dose Ordered Sig/Linda Route Start Time Stop Time Status Last Admin (NS Flush) 2 ml UNSCH PRN IV FLUSH 04/15/17 19:15 (NS Flush) 2 ml BID IV FLUSH 04/15/17 21:00 04/16/17 07:52 (Narcan Inj) 0.4 mg UNSCH PRN IV PUSH 04/15/17 19:15 (Ecotrin Ec) 81 mg DAILY PO 04/16/17 09:00 04/16/17 07:49 (Remeron) 7.5 mg HS PO 04/15/17 21:00 04/16/17 20:51 (Pravachol) 10 mg HS PO 04/15/17 21:00 04/16/17 20:51 Sodium Chloride 1,000 ml @ 84 mls/hr [id number] IV 04/15/17 20:00 04/17/17 04:22 Ceftriaxone Sodium 2000 mg/ Sodium Chloride 100 ml @ 200 mls/hr Q12H IV 04/15/17 21:00 04/16/17 20:50 Pharmacy Profile Note 0 ml @ 0 mls/hr UNSCH OTHER 04/15/17 20:00 Ampicillin Sodium 2000 mg/Sodium Chloride 100 ml @ 400 mls/hr Q4H IV 04/15/17 20:00 04/17/17 04:22 (Protonix Inj) 40 mg Q12H IV PUSH 04/16/17 09:00 04/16/17 20:51 (Heparin Inj) 5,000 units Q12HR SQ 04/15/17 21:00 04/16/17 20:51 (Lopressor) 12.5 mg BID PO 04/16/17 21:00 04/16/17 20:51 (Vasotec Inj) 1.25 mg Q6H PRN IV PUSH 04/16/17 15:15 (Pill Splitter) 1 ea UNSCH PRN OTHER 04/16/17 15:15 Allergies Allergies Coded Allergies No Known Allergies (Nfzegeqisk21/14/17) Exam I&O / VS Vital Signs Date Time Temp Pulse Resp B/P (MAP) Pulse Ox O2 Delivery O2 Flow Rate FiO2 04/17/17 04:00 97.5 63 18 132/89 (103) 94 04/17/17 00:00 97.3 68 20 165/69 (101) 95 04/16/17 20:19 130/61 (84) 04/16/17 19:30 98.6 97 18 213/97 (135) 99 04/16/17 19:14 92 04/16/17 16:00 99.7 98 18 135/69 (91) 96 04/16/17 12:00 96.9 86 18 159/70 (99) 96 04/16/17 08:00 18 04/16/17 08:00 98.0 90 142/77 (98) 97 Objective Radiology Results Last [address] 04/15/17 1515 Signed Impressions: Service Date/Time: April 16:45 - CONCLUSION: 1. No acute intracranial process. 2. No evidence of acute infarct, hemorrhage, mass or edema. Daniel Thompson MD Chest X-Ray 04/15/171514 Signed Impressions: Service Date/Time: April 15:33 - CONCLUSION: 1. No acute cardiopulmonary disease. Mani Nicholas MD Cervical Spine CT 04/15/171514 Signed Impressions: Service Date/Time: April 16:47 - CONCLUSION: 1. No evidence of acute fracture or traumatic listhesis. 2. Moderate degenerative disc disease. 3. Left sided mild to moderate facet arthropathy. Daniel Thompson MD Micro and Labs Laboratory Tests Test 04/17/17 04:10 White Blood Count 11.3 Red Blood Count 3.14 Hemoglobin 9.9 Hematocrit 29.3 Mean Corpuscular Volume 93.5 Mean Corpuscular Hemoglobin 31.6 Mean Corpuscular Hemoglobin Concent 33.9 Red Cell Distribution Width 14.3 Platelet Count 134 Mean Platelet Volume 7.6 Neutrophils (%) (Auto) 83.4 Lymphocytes (%) (Auto) 8.2 Monocytes (%) (Auto) 8.1 Eosinophils (%) (Auto) 0.1 Basophils (%) (Auto) 0.2 Neutrophils # (Auto) 9.4 Lymphocytes # (Auto) 0.9 Monocytes # (Auto) 0.9 Eosinophils # (Auto) 0.0 Basophils # (Auto) 0.0 CBC Comment DIFF FINAL Differential Comment Blood Urea Nitrogen 29 Creatinine 1.44 Random Glucose 120 Calcium Level 8.0 Sodium Level 145 Potassium Level 3.8 Chloride Level 116 Carbon Dioxide Level 18.8 Anion Gap 10 Estimat Glomerular Filtration Rate 47 Total Creatine Kinase 532 Creatine Kinase MB 6.3 Creatine Kinase MB % 1.2 Random Vancomycin Level 12.2 Date/Time Source Procedure Growth Status 04/16/17 00:08 Blood Peripheral Aerobic Blood Culture Pending Received 04/16/17 00:08 Blood Peripheral Anaerobic Blood Culture Pending Received Geri Cuevas MD Apr 17, 2017 07:28
[2017-04-17] MEDS: cefTRIAXone INJ 2,000 MG in SODIUM CHLORIDE 0.9% INJ 100 ML IV SCH ×2 (08:25→21:21)
[2017-04-17] MEDS: SODIUM CHLORIDE 0.9% FLUSH 10 ML FLUSH IV FLUSH SCH ×2 (08:26→21:24)
[2017-04-17] MEDS: METOPROLOL TARTRATE 25 MG TAB PO SCH ×2 (08:26→21:17)
[2017-04-17] MEDS: ASPIRIN EC 81 MG TABEC PO SCH (08:26)
[2017-04-17] MEDS: HEPARIN SODIUM - SQ 10,000 UNITS/ML VIAL SQ SCH ×2 (08:26→21:25)
[2017-04-17] MEDS: PANTOPRAZOLE SODIUM 40 MG VIAL IV PUSH SCH ×2 (08:26→21:24)
[2017-04-17] MEDS ORDERED: VANCOMYCIN INJ 1,250 MG in SODIUM CHLOR 0.9% 250 ML INJ 250 ML IV ONE (10:00)
--- NOTE | 2017-04-17 12:12 | EKG ---
Date Performed: 04/15/2017 Time Performed: 17:53:11 PTAGE: 81 years EKG: Sinus rhythm POSSIBLE RIGHT VENTRICULAR CONDUCTION DELAY ST DEVIATION AND MODERATE T-WAVE ABNORMALITY, CONSIDER A NTEROLATERAL ISCHEMIA ST DEVIATION AND MODERATE T-WAVE ABNORMALITY, CONSIDER INFERIOR ISCHEMIA ABNORM AL ECG NO PREVIOUS TRACING DOCTOR: Canelo Morales Interpretating Date/Time 04/17/2017 12:11:00
--- NOTE | 2017-04-17 15:58 | MB ---
cc: HUYEN TAYLOR MD DATE OF CONSULTATION: 04/17/2017. REASON FOR CONSULTATION: Patient fell and is now encephalopathic. He presented with leukocytosis, so far no obvious source of infection; however, it is a big change in neuro status and neuro workup has been negative. Appreciate any recommendations. REQUESTING PHYSICIAN: Dr. Montana. HISTORY OF PRESENT ILLNESS: This is an 81-year-old white male who was brought to emergency department after he fell at home. The patient reportedly lives by himself and he apparently fell on the floor and hit his head. He was brought to the emergency department and on presentation his white count was noted to be elevated at 14.7 but he was afebrile. He is awake and CT scan of the head was performed and showed no acute intracranial process. Chest x-ray showed no acute cardiopulmonary disease. The patient's mental status was noted to have declined after he was admitted to the hospital on 04/15. He was evaluated by neurology. An EEG was performed and it showed no epileptiform discharges. Blood cultures were taken and are negative. The patient has been started on intravenous antibiotics. The patient awakens for me very easily and he does respond to me but is not verbalizing much. He indicates to me that he feels okay and he denies headache. He does keep his eyes open for the entire time I was in the room examining him. He appears calm. He does have some tremors of the hands. Today's white blood cell count is level 0.3. The nurse reports to me that the patient is having loose stools. He has had three loose stools today. PAST MEDICAL HISTORY: 1. Hypertension. 2. COPD. 3. Restless leg syndrome. 4. Coronary artery disease. 5. History of angioplasty. ALLERGIES: NO KNOWN DRUG ALLERGIES. MEDICATIONS: 1. Vancomycin. 2. Ceftriaxone. 3. Ampicillin. 4. Protonix. 5. Remeron. 6. Pravachol. 7. Lopressor. FAMILY HISTORY AND SOCIAL HISTORY Unable to obtain. The social history and family history are reviewed in the medical record. The patient reportedly does not use tobacco or alcohol. PHYSICAL EXAMINATION: GENERAL: This is an elderly slender male in no acute distress. He is awake upon being aroused. VITAL SIGNS: The vital signs include a temperature of 97.1, blood pressure 136/64, respirations 20. Heart rate is 77. HEAD, EYES, EARS, NOSE, THROAT: The head is atraumatic. Extraocular movements are grossly intact. Pupils reactive to light without icterus. Oropharynx with slightly dry mucosa. NECK: The neck is supple without adenopathy. LUNGS: Clear breath sounds bilateral. HEART: Regular S1 and S2 without audible murmurs, rubs or gallops. ABDOMEN: Soft, benign. RECTAL: Not performed. EXTREMITIES: No clubbing or cyanosis or edema. The patient has ecchymosis of the upper extremities. SKIN: No diffuse rash. NEUROLOGIC: Difficult to assess but no gross focal findings. The patient is following simple commands. PSYCHIATRIC: The patient is calm. LABORATORY DATA: WBC 11.3, 83% neutrophils, 8% lymphocytes, hemoglobin 9.9, platelet count 134,000, creatinine 1.44, BUN 29, sodium 145 total creatine kinase 532, estimated GFR 47. IMPRESSION: Altered mental status which appears to be improving based on my discussion with the nurse who mentioned that the patient was not oriented and not very responsive. He appears to be interacting better with me and although he is not oriented to place or time and in no distress and denies pain and remains alert when I woke him up. Cultures to-date are negative with no indication of infection at this time. The patient is afebrile and his white blood cell count is only mildly elevated. I doubt this patient has meningitis. I am not certain what the source of his leukocytosis is at this time however. RECOMMENDATIONS: 1. Discontinue ampicillin. 2. Discontinue vancomycin. 3. Continue ceftriaxone for now. 4. Monitor the blood cultures. 5. Monitor the mental status. 6. If he has fever, additional cultures can be taken. However, if his mental status continues to improve, I think that we can discontinue the ceftriaxone if there is no additional evidence suggesting infection. Besides that, I have nothing further to add but I will follow the patient. Huyen Taylor MD FD/TEDDY /2:19 PM /3:37 PM
--- NOTE | 2017-04-17 18:57 | HHI.PR ---
Subjective Remarks Patient is resting comfortably in bed with his son by his side. He is not well oriented according to his son. Mood is appropriate, but since his fall he has not been able to remember simple things like the day, year, etc. Objective Vital Signs Date Time Temp Pulse Resp B/P (MAP) Pulse Ox O2 Delivery O2 Flow Rate FiO2 04/17/17 17:30 74 04/17/17 11:43 97.1 77 21 136/64 (88) 97 04/17/17 08:00 98.8 66 21 135/83 (100) 94 04/17/17 04:00 97.5 63 18 132/89 (103) 94 04/17/17 00:00 97.3 68 20 165/69 (101) 95 04/16/17 20:19 130/61 (84) 04/16/17 19:30 98.6 97 18 213/97 (135) 99 04/16/17 19:14 92 I/O 04/16/17 04/16/17 04/16/17 04/17/17 04/17/17 04/17/17 07:00 15:00 23:00 07:00 15:00 23:00 Intake Total 50 ml 60 ml 220 ml 1120 ml 0 ml Output Total 200 ml 100 ml 800 ml 450 ml Balance -150 ml 60 ml 120 ml 320 ml -450 ml Intake Oral 50 ml 60 ml 120 ml 120 ml 0 ml IV Total 100 ml 1000 ml Output Urine Total 200 ml 100 ml 800 ml 450 ml Stool Total 0 ml Bladder Scan Volume Amount 809 ml # Voids 1 2 # Bowel Movements 0 1 1 1 Result Diagram: 04/17/1740904/17/17409 Objective Remarks GENERAL: Elderly, not well oriented. SKIN: Warm and dry. HEAD: Normocephalic. EYES: No scleral icterus. No injection or drainage. NECK: Supple, trachea midline. No JVD or lymphadenopathy. CARDIOVASCULAR: Regular rate and rhythm without murmurs, gallops, or rubs. RESPIRATORY: Breath sounds equal bilaterally. No accessory muscle use. GASTROINTESTINAL: Abdomen soft, non-tender, nondistended. MUSCULOSKELETAL: No cyanosis, or edema. BACK: Nontender without obvious deformity. No CVA tenderness. EXTREMITIES: No edema NEURO: Grossly intact, no focal deficits, no abnormal movements Assessment and Plan Problem List: (1) Gait instability ICD Codes: R26.81 - Unsteadiness on feet Status: Acute (2) Altered mental status, unspecified ICD Codes: R41.82 - Altered mental status, unspecified Status: Acute (3) Renal insufficiency ICD Codes: N28.9 - Disorder of kidney and ureter, unspecified Status: Acute Assessment and Plan Gait Instability with Fall - Fell onto floor with resultant rhabdomyolysis, no fractures - Neuro involved and assisting with investigation, seizures being considered but normal EEG - Infectious causes considered, blood cultures pending Altered Mental Status - IV antibiotic coverage with Vancomycin, Ceftriaxone and Ampicillin to cover meningitis or sepsis. - Unable to swallow pills, though CT and MRI of brain were unremarkable. - ID consulted and assisting Dysphagia - Unable to swallow safely, so NPO as of today Rhabdomyolysis - s/p fall, continue IVF, CPK reducing slowly Acute Renal Insufficiency - Resolving as the rhabdomyolysis resolves COPD - Stable HTN - Stable, but off of meds and showing some episodic tachycardia (NPO) DVT Prophylaxis - On Heparin GI Prophylaxis - Ranitidine Juan Manuel Wynn MD Apr 17, 2017 6:57 pm
[2017-04-17] MEDS: MIRTAZAPINE 15 MG TAB PO SCH (21:17)
[2017-04-17] MEDS: PRAVASTATIN SOD 10 MG TAB PO SCH (21:17)
[2017-04-17] MEDS: ENALAPRILAT 1.25 MG/ML VIAL IV PUSH PRN (21:25)
[2017-04-18] VITALS (10 sets, daily range): BP systolic 101–189; BP diastolic 56–89; PULSE 75–136; RESP 18–21; TEMP 96.2–98.4; O2SAT 94–97
[2017-04-18] MEDS: SODIUM CHLOR 0.9% 1000 ML INJ 1,000 ML IV SCH (05:08)
[2017-04-18] MEDS: ASPIRIN EC 81 MG TABEC PO SCH (08:26)
[2017-04-18] MEDS: SODIUM CHLORIDE 0.9% FLUSH 10 ML FLUSH IV FLUSH SCH ×2 (08:26→21:03)
[2017-04-18] MEDS: cefTRIAXone INJ 2,000 MG in SODIUM CHLORIDE 0.9% INJ 100 ML IV SCH ×2 (08:26→21:02)
[2017-04-18] MEDS: HEPARIN SODIUM - SQ 10,000 UNITS/ML VIAL SQ SCH ×2 (08:26→21:02)
[2017-04-18] MEDS: METOPROLOL TARTRATE 25 MG TAB PO SCH ×2 (08:26→21:00)
[2017-04-18] MEDS: PANTOPRAZOLE SOD 40 MG DELAYED RELEASE TAB PO SCH ×2 (09:00→21:00)
--- NOTE | 2017-04-18 15:24 | ECHRPT ---
Indication: cva tia CONCLUSIONS Normal left ventricular size and wall thickness. The left ventricular systolic function is normal wi th an estimated ejection fraction in the range of 60-65%. No definite wall motion abnormalities. No significant valvular abnormalities are noted. BP: / HR: Rhythm: MEASUREMENTS (Male / Female) Normal Values Technical Quality:Poor 2D ECHO LV Diastolic Diameter PLAX 4.7 cm 4.2 - 5.9 / 3.9 - 5.3 cm LV Systolic Diameter PLAX 3.3 cm IVS Diastolic Thickness 1.6 cm 0.6 - 1.0 / 0.6 - 0.9 cm LVPW Diastolic Thickness 1.3 cm 0.6 - 1.0 / 0.6 - 0.9 cm LV Relative Wall Thickness 0.6 M-MODE Aortic Root Diameter MM 3.3 cm LA Systolic Diameter MM 3.7 cm LA Ao Ratio MM 1.1 AV Cusp Separation MM 2.2 cm FINDINGS LEFT VENTRICLE Normal left ventricular size and wall thickness. The left ventricular systolic function is normal wi th an estimated ejection fraction in the range of 60-65%. No definite wall motion abnormalities. RIGHT VENTRICLE Normal right ventricular size and systolic function. LEFT ATRIUM The left atrial size is normal. RIGHT ATRIUM The right atrial size is normal. ATRIAL SEPTUM Normal atrial septal thickness without atrial level shunting by limited color doppler interrogation. AORTA The aortic root and proximal ascending aorta are not well visualized. MITRAL VALVE Structurally normal mitral valve. No mitral valve stenosis or regurgitation. AORTIC VALVE Trileaflet aortic valve. No aortic valve stenosis or regurgitation. TRICUSPID VALVE Structurally normal tricuspid valve. No tricuspid valve stenosis or regurgitation. PULMONARY VALVE No pulmonary valve regurgitation or stenosis. VESSELS The inferior vena cava is normal in size. PERICARDIUM No pericardial effusion. Jre Alexandre MD (Electronically Signed) Final Date:18 April 2017 15:23
--- NOTE | 2017-04-18 18:50 | HHI.PR ---
Subjective Remarks Pt is more alert and interactive today, able to have a conversation, but still a little confused about recall of details. Objective Vital Signs Date Time Temp Pulse Resp B/P (MAP) Pulse Ox O2 Delivery O2 Flow Rate FiO2 04/18/17 15:42 96.8 75 20 189/85 (119) 95 04/18/17 12:00 77 04/18/17 11:45 98.4 80 20 178/77 (110) 96 04/18/17 07:43 96.2 79 21 159/79 (105) 96 04/18/17 04:40 96.7 81 20 170/76 (107) 95 04/18/17 00:14 96.3 75 20 160/73 (102) 97 04/17/17 23:50 68 04/17/17 20:45 98.0 74 18 166/76 (106) 96 04/17/17 19:55 73 I/O 04/17/17 04/17/17 04/17/17 04/18/17 04/18/17 04/18/17 07:00 15:00 23:00 07:00 15:00 23:00 Intake Total 1120 ml 0 ml 100 ml 980 ml 0 ml Output Total 800 ml 450 ml 800 ml 350 ml 900 ml Balance 320 ml -450 ml -700 ml 630 ml -900 ml Intake Oral 120 ml 0 ml 0 ml 0 ml 0 ml IV Total 1000 ml 100 ml 980 ml Output Urine Total 800 ml 450 ml 800 ml 350 ml 900 ml Stool Total 0 ml # Bowel Movements 1 0 0 1 Result Diagram: 04/17/1740904/17/17409 Objective Remarks GENERAL: Elderly, not well oriented. SKIN: Warm and dry. HEAD: Normocephalic. EYES: No scleral icterus. No injection or drainage. NECK: Supple, trachea midline. No JVD or lymphadenopathy. CARDIOVASCULAR: Regular rate and rhythm without murmurs, gallops, or rubs. RESPIRATORY: Breath sounds equal bilaterally. No accessory muscle use. GASTROINTESTINAL: Abdomen soft, non-tender, nondistended. MUSCULOSKELETAL: No cyanosis, or edema. BACK: Nontender without obvious deformity. No CVA tenderness. EXTREMITIES: No edema NEURO: Grossly intact, no focal deficits, no abnormal movements, generalized weakness Assessment and Plan Problem List: (1) Gait instability ICD Codes: R26.81 - Unsteadiness on feet Status: Acute (2) Altered mental status, unspecified ICD Codes: R41.82 - Altered mental status, unspecified Status: Acute (3) Renal insufficiency ICD Codes: N28.9 - Disorder of kidney and ureter, unspecified Status: Acute Assessment and Plan Gait Instability with Fall - Fell onto floor with resultant rhabdomyolysis, no fractures - Neuro involved and assisting with investigation, seizures being considered but normal EEG - Infectious causes considered, blood cultures negative x 3 days Altered Mental Status - Improving today - IV antibiotic coverage with Vancomycin, Ceftriaxone and Ampicillin to cover meningitis or sepsis. - Unable to swallow pills, though CT and MRI of brain were unremarkable. - ID consulted and assisting Dysphagia - Unable to swallow safely, so NPO as of today Rhabdomyolysis - s/p fall, continue IVF, follow CPK Acute Renal Insufficiency - Resolving as the rhabdomyolysis resolves COPD - Stable HTN - Controlled with periodic Vasotec DVT Prophylaxis - On Heparin GI Prophylaxis - Ranitidine Discharge Planning - Will need SNF-Rehab Juan Manuel Wynn MD Apr 18, 2017 18:49
[2017-04-18] MEDS: MIRTAZAPINE 15 MG TAB PO SCH (21:00)
[2017-04-18] MEDS: PRAVASTATIN SOD 10 MG TAB PO SCH (21:00)
[2017-04-18] MEDS: ENALAPRILAT 1.25 MG/ML VIAL IV PUSH PRN (21:01)
[2017-04-18] MEDS ORDERED: METOPROLOL TARTRATE 5 MG/5 ML VIAL IV PUSH ONE (22:30)
[2017-04-18 23:06] LABS: AUTOMATED NEUTROPHIL # 6.2 TH/MM3 (1.8-7.7); BASOPHIL % 0.6 % (0.0-2.0); EOSINOPHIL # 0.3 TH/MM3 (0-0.4); EOSINOPHIL % 3.1 % (0.0-4.0); HEMATOCRIT 36.6 % (39.0-51.0); HEMO FLAGS DIFF FINAL; LYMPH % 17.7 % (9.0-44.0); LYMPHOCYTE # 1.5 TH/MM3 (1.0-4.8); MEAN CELL VOLUME 93.7 FL (80.0-100.0); MEAN CORPUSCULAR HEMOGLOBIN 30.8 PG (27.0-34.0); MEAN CORPUSCULAR HGB CONC 32.9 % (32.0-36.0); MONO % 6.8 % (0.0-8.0); NEUT % 71.8 % (16.0-70.0); PLATELET COUNT 143 TH/MM3 (150-450); RED BLOOD COUNT 3.91 MIL/MM3 (4.50-5.90); RED CELL DISTRIBUTION WIDTH 14.3 % (11.6-17.2); WHITE BLOOD COUNT 8.6 TH/MM3 (4.0-11.0)
[2017-04-18 23:29] LABS: ALKALINE PHOSPHATASE 74 U/L (45-117); ALT (GPT) 25 U/L (12-78); ANION GAP 16 MEQ/L (5-15); AST (GOT) 24 U/L (15-37); BICARBONATE 15.3 MEQ/L (21.0-32.0); BLOOD UREA NITROGEN 18 MG/DL (7-18); CHLORIDE 112 MEQ/L (98-107); GLOMERULAR FILTRATION RATE 77 ML/MIN (>89); POTASSIUM 3.5 MEQ/L (3.5-5.1); SODIUM (NA) 143 MEQ/L (136-145); TOTAL BILIRUBIN ADULT 0.6 MG/DL (0.2-1.0)
[2017-04-18 23:33] LABS: CREATINE KINASE 71 U/L (39-308)
[2017-04-19] VITALS (7 sets, daily range): BP systolic 107–171; BP diastolic 58–85; PULSE 72–140; RESP 18–20; TEMP 97.7–99.3; O2SAT 95–99
[2017-04-19] MEDS ORDERED: METOPROLOL TARTRATE 5 MG/5 ML VIAL IV PUSH ONE (01:00)
[2017-04-19] MEDS: SODIUM CHLOR 0.9% 1000 ML INJ 1,000 ML IV SCH ×3 (05:49→18:29)
[2017-04-19] MEDS: METOPROLOL TARTRATE 25 MG TAB PO SCH ×3 (09:00→21:00)
[2017-04-19] MEDS: ASPIRIN EC 81 MG TABEC PO SCH ×2 (09:00→10:07)
[2017-04-19] MEDS: PANTOPRAZOLE SOD 40 MG DELAYED RELEASE TAB PO SCH ×3 (09:00→21:00)
[2017-04-19] MEDS: HEPARIN SODIUM - SQ 10,000 UNITS/ML VIAL SQ SCH ×2 (10:08→20:59)
[2017-04-19] MEDS: cefTRIAXone INJ 2,000 MG in SODIUM CHLORIDE 0.9% INJ 100 ML IV SCH (10:08)
[2017-04-19] MEDS: SODIUM CHLORIDE 0.9% FLUSH 10 ML FLUSH IV FLUSH SCH ×2 (10:10→21:00)
--- NOTE | 2017-04-19 11:56 | HHI.IDPN ---
Note Infectious Disease Note Patient is awake and in no distress. No oriented to place or time. Interacting. Has the TV remote in his hand. Appears to be trying to figure out the buttons. Denies pain. Afebrile. WBC is normal. I stopped Vancomycin and Ampicillin on 04/17/17. Patient was brought to emergency department after he fell at home. The patient reportedly lives by himself and he apparently fell on the floor and hit his head. He was brought to the emergency department and on presentation his white count was noted to be elevated at 14.7 but he was afebrile. He is awake and CT scan of the head was performed and showed no acute intracranial process. PAST MEDICAL HISTORY: 1. Hypertension. 2. COPD. 3. Restless leg syndrome. 4. Coronary artery disease. 5. History of angioplasty. ALLERGIES: NO KNOWN DRUG ALLERGIES. ANTIBIOTICS Ceftriaxone. PHYSICAL EXAMINATION: GENERAL: No acute distress. He is awake and comfortable. HEAD, EYES, EARS, NOSE, THROAT: The head is atraumatic. Extraocular movements are grossly intact. Pupils reactive to light without icterus. Oropharynx with slightly dry mucosa. NECK: The neck is supple without adenopathy. LUNGS: Clear breath sounds bilateral. HEART: Regular S1 and S2 without audible murmurs, rubs or gallops. ABDOMEN: Soft, benign. EXTREMITIES: No clubbing or cyanosis or edema. The patient has ecchymosis of the upper extremities. SKIN: No diffuse rash. NEUROLOGIC: No gross focal findings. PSYCHIATRIC: The patient is calm. IMPRESSION: Altered mental status which appears to be improving. Negative cultures. Leukocytosis improved. RECOMMENDATIONS: Discontinue antibiotics. No evidence of infection. I will sign off now. Waqar Taylor MD Apr 19, 2017 11:56
--- NOTE | 2017-04-19 13:47 | HHI.PR ---
Subjective Remarks Pt is confused again today. Family is at bedside and we discussed work up. He coughed up a "phlegm ball" last night. Objective Vital Signs Date Time Temp Pulse Resp B/P (MAP) Pulse Ox O2 Delivery O2 Flow Rate FiO2 04/19/17 12:00 99.3 75 18 155/64 (94) 99 04/19/17 08:00 98.5 73 20 143/64 (90) 95 04/19/17 04:29 98.4 120 19 118/69 (85) 95 04/19/17 00:52 97.7 140 18 107/58 (74) 98 04/18/17 23:45 97.4 120 18 114/87 (96) 96 04/18/17 22:28 97.0 136 18 101/56 (71) 97 04/18/17 21:50 97.0 136 18 123/64 (83) 96 04/18/17 19:30 97.1 85 18 188/89 (122) 94 04/18/17 15:42 96.8 75 20 189/85 (119) 95 I/O 04/18/17 04/18/17 04/18/17 04/19/17 04/19/17 04/19/17 07:00 15:00 23:00 07:00 15:00 23:00 Intake Total 980 ml 0 ml 100 ml 480 ml Output Total 350 ml 900 ml 475 ml 750 ml Balance 630 ml -900 ml -375 ml -270 ml Intake Oral 0 ml 0 ml 0 ml 480 ml IV Total 980 ml 100 ml Output Urine Total 350 ml 900 ml 475 ml 750 ml # Bowel Movements 0 1 0 0 Result Diagram: 04/18/17222404/18/172224 Objective Remarks GENERAL: Elderly, not well oriented. SKIN: Warm and dry. HEAD: Normocephalic. EYES: No scleral icterus. No injection or drainage. NECK: Supple, trachea midline. No JVD or lymphadenopathy. CARDIOVASCULAR: Regular rate and rhythm without murmurs, gallops, or rubs. RESPIRATORY: Breath sounds equal bilaterally. No accessory muscle use. GASTROINTESTINAL: Abdomen soft, non-tender, nondistended. MUSCULOSKELETAL: No cyanosis, or edema. BACK: Nontender without obvious deformity. No CVA tenderness. EXTREMITIES: No edema NEURO: Grossly intact, no focal deficits, no abnormal movements, generalized weakness Assessment and Plan Problem List: (1) Gait instability ICD Codes: R26.81 - Unsteadiness on feet Status: Acute (2) Altered mental status, unspecified ICD Codes: R41.82 - Altered mental status, unspecified Status: Acute (3) Renal insufficiency ICD Codes: N28.9 - Disorder of kidney and ureter, unspecified Status: Acute Assessment and Plan Gait Instability with Fall - Fell onto floor with resultant rhabdomyolysis, no fractures - Neuro involved and assisting with investigation, seizures being considered but normal EEG Altered Mental Status - Back to a more confused state - IV antibiotic coverage with Vancomycin, Ceftriaxone and Ampicillin to cover meningitis or sepsis. - Unable to swallow pills, though CT and MRI of brain were unremarkable. - Cultures negative, recommend D/C antibiotics, ID has signed off. - Repeat CT brain - B12, TSH, Testosterone, RPR ordered Dysphagia - Unable to swallow safely - Repeat swallow eval Rhabdomyolysis w/ Acute Renal Insufficiency - s/p fall, now resolved COPD - Stable HTN - Fair control with periodic Vasotec DVT Prophylaxis - On Heparin GI Prophylaxis - Ranitidine Discharge Planning - Will need SNF-Rehab Juan Manuel Wynn MD Apr 19, 2017 13:47
--- NOTE | 2017-04-19 15:24 | HHI.PR ---
Review/Management Daily Summary 04/17 awakened, some myoclonic hands/arms upon movement speech same. utters few words and follows some commands not epileptiform eeg encephalopathy, ??sepsis at least appearing stable could LP him but doubt of meningitis 04/[address] I asked about this place, mentioned name of bar where he lived in past moves 4 limbs, denies pain encephalopathy of undetermined cause, presumably systemic infectious process or meningitis continue supportive general care Subjective Subjective Comments family at bedside confused Active Medications Current Medications Medications (Trade) Dose Ordered Sig/Linda Route Start Time Stop Time Status Last Admin (NS Flush) 2 ml UNSCH PRN IV FLUSH 04/15/17 19:15 (NS Flush) 2 ml BID IV FLUSH 04/15/17 21:00 04/19/17 10:10 (Narcan Inj) 0.4 mg UNSCH PRN IV PUSH 04/15/17 19:15 (Ecotrin Ec) 81 mg DAILY PO 04/16/17 09:00 04/16/17 07:49 (Remeron) 7.5 mg HS PO 04/15/17 21:00 04/16/17 20:51 (Pravachol) 10 mg HS PO 04/15/17 21:00 04/16/17 20:51 Sodium Chloride 1,000 ml @ 84 mls/hr [id number] IV 04/15/17 20:00 04/19/17 05:49 (Heparin Inj) 5,000 units Q12HR SQ 04/15/17 21:00 04/19/17 10:08 (Lopressor) 12.5 mg BID PO 04/16/17 21:00 04/16/17 20:51 (Vasotec Inj) 1.25 mg Q6H PRN IV PUSH 04/16/17 15:15 04/18/17 21:01 (Pill Splitter) 1 ea UNSCH PRN OTHER 04/16/17 15:15 (Protonix) 40 mg Q12HR PO 04/18/17 09:00 Allergies Allergies Coded Allergies No Known Allergies (Jccpxhljow04/14/17) Exam I&O / VS Vital Signs Date Time Temp Pulse Resp B/P (MAP) Pulse Ox O2 Delivery O2 Flow Rate FiO2 04/19/17 12:00 99.3 75 18 155/64 (94) 99 04/19/17 08:00 98.5 73 20 143/64 (90) 95 04/19/17 04:29 98.4 120 19 118/69 (85) 95 04/19/17 00:52 97.7 140 18 107/58 (74) 98 04/18/17 23:45 97.4 120 18 114/87 (96) 96 04/18/17 22:28 97.0 136 18 101/56 (71) 97 04/18/17 21:50 97.0 136 18 123/64 (83) 96 04/18/17 19:30 97.1 85 18 188/89 (122) 94 04/18/17 15:42 96.8 75 20 189/85 (119) 95 Objective Micro and Labs Laboratory Tests Test 04/18/17 22:25 White Blood Count 8.6 Red Blood Count 3.91 Hemoglobin 12.0 Hematocrit 36.6 Mean Corpuscular Volume 93.7 Mean Corpuscular Hemoglobin 30.8 Mean Corpuscular Hemoglobin Concent 32.9 Red Cell Distribution Width 14.3 Platelet Count 143 Mean Platelet Volume 7.7 Neutrophils (%) (Auto) 71.8 Lymphocytes (%) (Auto) 17.7 Monocytes (%) (Auto) 6.8 Eosinophils (%) (Auto) 3.1 Basophils (%) (Auto) 0.6 Neutrophils # (Auto) 6.2 Lymphocytes # (Auto) 1.5 Monocytes # (Auto) 0.6 Eosinophils # (Auto) 0.3 Basophils # (Auto) 0.0 CBC Comment DIFF FINAL Differential Comment Blood Urea Nitrogen 18 Creatinine 0.94 Random Glucose 80 Total Protein 5.8 Albumin 3.0 Calcium Level 8.6 Alkaline Phosphatase 74 Aspartate Amino Transf (AST/SGOT) 24 Alanine Aminotransferase (ALT/SGPT) 25 Total Bilirubin 0.6 Sodium Level 143 Potassium Level 3.5 Chloride Level 112 Carbon Dioxide Level 15.3 Anion Gap 16 Estimat Glomerular Filtration Rate 77 Total Creatine Kinase 71 Date/Time Source Procedure Growth Status 04/16/17 00:08 Blood Peripheral Aerobic Blood Culture - Preliminary NO GROWTH IN 3 DAYS Resulted 04/16/17 00:08 Blood Peripheral Anaerobic Blood Culture - Preliminary NO GROWTH IN 3 DAYS Resulted Geri Cuevas MD Apr 19, 2017 15:24
--- NOTE | 2017-04-19 15:52 | EKG ---
Date Performed: 04/19/2017 Time Performed: 01:09:14 PTAGE: 81 years EKG: Atrial fibrillation with rapid ventricular response. rSr'(V1) - probable normal variant Inf erior/lateral ST-T changes are nonspecific Abnormal ECG Compared to PREVIOUS TRACING , patient is now in atrial fibrillation with rapid ventricular response. PREVIOUS TRACING 04/15/2017 17.53.11 DOCTOR: Richie Escobedo Interpretating Date/Time 04/19/2017 15:51:08
--- NOTE | 2017-04-19 16:11 | PD.CONS ---
Consult Service Palliative Care Consult Requested By Daiana WU . Primary Care Physician Sam Edmonds MD Reason for Consultation a. To assist with evaluation and management of symptoms including: Encephalopathy, dysphagia b. To assist medical decision maker(s) with: better understanding of current medical conditions; weighing benefits/burdens of medical treatment options; making medical treatment decisions. HPI History of Present Illness This 81-year-old man presented to the ED on, with reports of a fall. Patient apparently lives at home by himself his son comes by to help him as needed. Patient reporting some time that morning he tripped and fell forward hitting his head he was unable to get up by himself he had to wait for his son to come help him. Patient was not sure if he had loss of consciousness. Patient reports to take an aspirin a day. Otherwise reporting pain to right forearm some abrasions noted. * ED course: Radius/ ulna imaging negative for fracture. Cervical spine CAT scan negative for acute fracture. CXR with no acute process. Head CT no acute process no evidence of infarct mass or edema. Family reported to ED provider the patient was independent with ADLs one week prior -walking on his own, family delivered meals. Prior to presentation he began to experience tremors, forgetfulness, and required increased assistance. Son reported trying to get father to move in with him soon. Patient was admitted for further evaluation and management. * Family also reported patient was some hallucinations, and always had a tremor but had significantly worsened--had not had any acute hospitalizations except during his 50s for cardiac angioplasty; a lot of bed twice a year ago but never required medical treatment for. Medical attending notes patient's son is POA, patient made DNR. * Neurology consulted: Neurology notes acute encephalopathy undetermined etiology-has had ongoing trembling of his right hand but no Parkinson's diagnoses. MRI brain= no acute findings mild microvascular disease. MRA study limited. + Rhabdomyolysis/ may be sepsis. EEG with no epileptiform discharge. Continue to follow clinical course. * Speech therapy following; patient noted with significant cognitive impairments , impaired attention, memory, communication. Subsequent speech therapy evaluations for dysphagia: patient with demonstration of severe oropharyngeal dysphasia recommends nothing by mouth. * Infectious disease consulted: Neurology workup remains negative, cultures to date negative. Afebrile WBC mildly elevated doubt meningitis. Etiology of leukocytosis not clear. Discontinue ampicillin, discontinued Vanco, continued on ceftriaxone following cultures, mental status. May discontinue Rocephin if no further evidence suggestive of infection, will follow * 04/19 patient continues to have confusion without clear etiology. Repeat CT brain ordered as well as additional labs B12, TSH, testosterone, RPR ( pending) . Palliative care was consulted to assist with clarification of goals of treatment. Function/Cognitive Trajectory Up until acute change last week patient lived at home and function fairly independently. He did have Meals on Wheels services for his meals, family checked in on him daily. He was able to manage his ADLs on his own, cognitively sharp. . Review of Systems ROS Limitations: Poor Historian (limited history patient confused, some limited history obtained from son) Constitutional: DENIES: Fever, Weight gain, Weight loss, Change in appetite, Pain, Generalized weakness Ears, nose, mouth, throat: DENIES: Throat pain Respiratory: DENIES: Cough, Shortness of breath Cardiovascular: DENIES: Chest pain, Syncope, Lower Extremity Edema Gastrointestinal: DENIES: Abdominal pain, Nausea, Vomiting, Difficulty Swallowing, Anorexia Neurologic: COMPLAINS OF: Tremor (worsened days before presentation), DENIES: Abnormal gait, Speech Problems, Poor Balance Psychiatric: COMPLAINS OF: Confusion (confusion onset day of presentation otherwise none previously), DENIES: Anxiety Past Family Social History Coded Allergies: No Known Allergies (Unverified , 04/15/17) Past Medical History Hypertension CAD- angioplasty x 2-in his 50s COPD/ emphysema- was on inhalor prn at home but does not use it restless leg Past Surgical History angioplasty x 2 no other sx Reported Medications Aspirin Adult Low Strength (Aspirin) 81 Mg Tabdr 81 Mg PO DAILY Vitamin B-12 (Cyanocobalamin) Unknown Strength Tab 1 Tab PO DAILY Vitamin D-1000 (Cholecalciferol) 1,000 Unit Tab 1,000 Units PO DAILY Metoprolol Tartrate 25 Mg Tab 12.5 Mg PO BID Allopurinol 100 Mg Tab 100 Mg PO DAILY Remeron (Mirtazapine) 15 Mg Tab 7.5 Mg PO HS Zocor (Simvastatin) 10 Mg Tab 5 Mg PO HS . Current Medications Medications (Trade) Dose Ordered Sig/Linda Route Start Time Stop Time Status Last Admin (NS Flush) 2 ml UNSCH PRN IV FLUSH 04/15/17 19:15 (NS Flush) 2 ml BID IV FLUSH 04/15/17 21:00 04/19/17 10:10 (Narcan Inj) 0.4 mg UNSCH PRN IV PUSH 04/15/17 19:15 (Ecotrin Ec) 81 mg DAILY PO 04/16/17 09:00 04/16/17 07:49 (Remeron) 7.5 mg HS PO 04/15/17 21:00 04/16/17 20:51 (Pravachol) 10 mg HS PO 04/15/17 21:00 04/16/17 20:51 Sodium Chloride 1,000 ml @ 84 mls/hr [id number] IV 04/15/17 20:00 04/19/17 05:49 (Heparin Inj) 5,000 units Q12HR SQ 04/15/17 21:00 04/19/17 10:08 (Lopressor) 12.5 mg BID PO 04/16/17 21:00 04/16/17 20:51 (Vasotec Inj) 1.25 mg Q6H PRN IV PUSH 04/16/17 15:15 04/18/17 21:01 (Pill Splitter) 1 ea UNSCH PRN OTHER 04/16/17 15:15 (Protonix) 40 mg Q12HR PO 04/18/17 09:00 Family History Mother-cancer, father-stroke . Substance Use Tobacco: Former smoker quit in 1968 Alcohol: None Prescription med abuse: None Illicits: None . 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 supported by son Korey, and [id number] Gela. They live near to patient and check on him daily and as needed. . He enjoyed hunting when he was younger. . Spiritual/Cultural Factors Has not recently been connected to any particular congregation family does not think he would want personnel placement specialist visits at this time. Durable [employer] Training Associate: Copy in medical record Date completed: November 21, 2014 Health Care Surrogate(s): son Korey healthcare DPOA, [id number] Gela as secondary Today's verbally stated goals: Family endorses that patient was very ill at end-of-life and ended up on hospice services. 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 They indicate that the patient would absolutely not want any sort of feeding tube or artificial measures, patient would only agree to further invasive measures if he had a very good chance of rehabilitation and maintaining /returning to his prior level of independence. They requested DNR per patient' s known wishes, and to give the patient another day or so for possible etiology to be identified however patient continues to not improve they would not want to proceed with feeding tube and would want comfort measures in lieu of further aggressive workup. Ethical and Legal Issues Patient with altered mental status, encephalopathy of unknown etiology. He is unable to make decisions. Son Korey is designated healthcare DPOA, document dated October 2014. . Physical Exam Vital Signs Date Time Temp Pulse Resp B/P (MAP) Pulse Ox O2 Delivery O2 Flow Rate FiO2 04/19/17 12:00 99.3 75 18 155/64 (94) 99 04/19/17 08:00 98.5 73 20 143/64 (90) 95 04/19/17 04:29 98.4 120 19 118/69 (85) 95 04/19/17 00:52 97.7 140 18 107/58 (74) 98 04/18/17 23:45 97.4 120 18 114/87 (96) 96 04/18/17 22:28 97.0 136 18 101/56 (71) 97 04/18/17 21:50 97.0 136 18 123/64 (83) 96 04/18/17 19:30 97.1 85 18 188/89 (122) 94 Exam CONSTITUTIONAL/GENERAL: Elderly thin male. TUBES/LINES/DRAINS: Peripheral IV right upper extremity, Fields catheter SKIN: No jaundice, rashes, or lesions. Multiple areas of ecchymosis and small minor skin tears to bilateral upper extremities. Skin very thin, fragile. Skin warm and dry. HEAD: Atraumatic. Normocephalic. EYES: Pupils equal and round and reactive. Extraocular motions intact. No scleral icterus. No injection or drainage. Fundi not examined. ENT: Hearing. Nose without bleeding or purulent drainage. Edentulous . Throat without visible erythema, exudates, masses, or lesions. NECK: Trachea midline. Supple, nontender. No palpable thyroid enlargement or nodularity. CARDIOVASCULAR: Regular rate and rhythm without murmur. No JVD. Peripheral pulses symmetric. RESPIRATORY/CHEST: Symmetric, unlabored respirations. Clear to auscultation. Breath sounds equal bilaterally. GASTROINTESTINAL: Abdomen soft, flat ,non-tender, nondistended. No palpable masses. No guarding. Bowel sounds present. GENITOURINARY: Without palpable bladder distension. Fields catheter in place. MUSCULOSKELETAL: Extremities without clubbing, cyanosis, or edema. No joint tenderness or effusion noted. No calf tenderness. No mottling or clubbing. LYMPHATICS: No palpable cervical or supraclavicular adenopathy. NEUROLOGICAL: Awake and alert. Oriented to self and recognizes family, otherwise confused. No facial droop. Follows some simple commands with repetition however does not consistently follow commands. Moving all 4 extremities with generalized weakness, unable to discern variance in strength from left to right. PSYCHIATRIC: No obvious anxiety/depression. no apparent hallucinations or other psychotic thought process. Diagnostic Tests Laboratory Laboratory Tests Test 04/17/17 04:10 04/18/17 22:25 White Blood Count 11.3 TH/MM3 (4.0-11.0) 8.6 TH/MM3 (4.0-11.0) Red Blood Count 3.14 MIL/MM3 (4.50-5.90) 3.91 MIL/MM3 (4.50-5.90) Hemoglobin 9.9 GM/DL (13.0-17.0) 12.0 GM/DL (13.0-17.0) Hematocrit 29.3 % (39.0-51.0) 36.6 % (39.0-51.0) Mean Corpuscular Volume 93.5 FL (80.0-100.0) 93.7 FL (80.0-100.0) Mean Corpuscular Hemoglobin 31.6 PG (27.0-34.0) 30.8 PG (27.0-34.0) Mean Corpuscular Hemoglobin Concent 33.9 % (32.0-36.0) 32.9 % (32.0-36.0) Red Cell Distribution Width 14.3 % (11.6-17.2) 14.3 % (11.6-17.2) Platelet Count 134 TH/MM3 (150-450) 143 TH/MM3 (150-450) Mean Platelet Volume 7.6 FL (7.0-11.0) 7.7 FL (7.0-11.0) Neutrophils (%) (Auto) 83.4 % (16.0-70.0) 71.8 % (16.0-70.0) Lymphocytes (%) (Auto) 8.2 % (9.0-44.0) 17.7 % (9.0-44.0) Monocytes (%) (Auto) 8.1 % (0.0-8.0) 6.8 % (0.0-8.0) Eosinophils (%) (Auto) 0.1 % (0.0-4.0) 3.1 % (0.0-4.0) Basophils (%) (Auto) 0.2 % (0.0-2.0) 0.6 % (0.0-2.0) Neutrophils # (Auto) 9.4 TH/MM3 (1.8-7.7) 6.2 TH/MM3 (1.8-7.7) Lymphocytes # (Auto) 0.9 TH/MM3 (1.0-4.8) 1.5 TH/MM3 (1.0-4.8) Monocytes # (Auto) 0.9 TH/MM3 (0-0.9) 0.6 TH/MM3 (0-0.9) Eosinophils # (Auto) 0.0 TH/MM3 (0-0.4) 0.3 TH/MM3 (0-0.4) Basophils # (Auto) 0.0 TH/MM3 (0-0.2) 0.0 TH/MM3 (0-0.2) CBC Comment DIFF FINAL DIFF FINAL Differential Comment Blood Urea Nitrogen 29 MG/DL (7-18) 18 MG/DL (7-18) Creatinine 1.44 MG/DL (0.60-1.30) 0.94 MG/DL (0.60-1.30) Random Glucose 120 MG/DL (74-106) 80 MG/DL (74-106) Calcium Level 8.0 MG/DL (8.5-10.1) 8.6 MG/DL (8.5-10.1) Sodium Level 145 MEQ/L (136-145) 143 MEQ/L (136-145) Potassium Level 3.8 MEQ/L (3.5-5.1) 3.5 MEQ/L (3.5-5.1) Chloride Level 116 MEQ/L (98-107) 112 MEQ/L (98-107) Carbon Dioxide Level 18.8 MEQ/L (21.0-32.0) 15.3 MEQ/L (21.0-32.0) Anion Gap 10 MEQ/L (5-15) 16 MEQ/L (5-15) Estimat Glomerular Filtration Rate 47 ML/MIN (>89) 77 ML/MIN (>89) Total Creatine Kinase 532 U/L (39-308) 71 U/L (39-308) Creatine Kinase MB 6.3 NG/ML (0.5-3.6) Creatine Kinase MB % 1.2 % (0.0-4.0) Random Vancomycin Level 12.2 COMMENT Total Protein 5.8 GM/DL (6.4-8.2) Albumin 3.0 GM/DL (3.4-5.0) Alkaline Phosphatase 74 U/L (45-117) Aspartate Amino Transf (AST/SGOT) 24 U/L (15-37) Alanine Aminotransferase (ALT/SGPT) 25 U/L (12-78) Total Bilirubin 0.6 MG/DL (0.2-1.0) Result Diagram: 04/18/17222404/18/172224 Microbiology Microbiology Date/Time Source Procedure Growth Status 04/16/17 00:08 Blood Peripheral Aerobic Blood Culture - Preliminary NO GROWTH IN 3 DAYS Resulted 04/16/17 00:08 Blood Peripheral Anaerobic Blood Culture - Preliminary NO GROWTH IN 3 DAYS Resulted Imaging Last Impressions Head CT 04/19/17 0000 Signed Impressions: Service Date/Time: Wednesday, April 19, 2017 16:09 - CONCLUSION: No acute disease. Juvenal Hutton Jr., MD Chest X-Ray 04/15/17 1515 Signed Impressions: Service Date/Time: April 15:33 - CONCLUSION: 1. No acute cardiopulmonary disease. Mani Nicholas MD Cervical Spine CT 04/15/17 1515 Signed Impressions: Service Date/Time: April 16:47 - CONCLUSION: 1. No evidence of acute fracture or traumatic listhesis. 2. Moderate degenerative disc disease. 3. Left sided mild to moderate facet arthropathy. Daniel Thompson MD Radius/Ulna X-Ray 04/15/17 0000 Signed Impressions: Service Date/Time: April 15:36 - CONCLUSION: 1. Very small nearly punctate calcified density projecting along the ulnar aspect of the wrist soft tissues. 2. No acute fracture or dislocation. Mani Nicholas MD Head Magnetic Resonance Angiography 04/15/17 0000 Signed Impressions: Service Date/Time: April 21:47 - CONCLUSION: 1. Suboptimal exam degraded by motion artifact as above. Bernard Arana MD Carotid Artery Ultrasound 04/15/17 0000 Signed Impressions: Service Date/Time: April 21:37 - CONCLUSION: 1. No hemodynamically significant stenosis identified in the carotid arteries bilaterally. Mild visible plaque formation. Bernard Arana MD Brain MRI 04/15/17 0000 Signed Impressions: Service Date/Time: April 21:47 - CONCLUSION: 1. No acute findings. Mild white matter ischemic changes. Bernard Arana MD Patient/Family Conference Present at Family Conference: Son Korey, [id number] Glea Family Conference Time (mins): 30 Family Conference Location: Bedside Issues Discussed: Met with patient's son and [id number] Gela at bedside discussion included the following : * Palliative care role, purpose, approach * Additional medical, psychosocial, and spiritual history * Patients general health, functional status, and cognitive changes in the months leading up to the current hospitalization * Patient/family understanding of the current medical problems * Patient/family understanding of prognosis * Patients goals of care as best understood from advance directives and/or conversations and/or values * Current medical treatment options and benefits/burdens of those options * CODE STATUS-they affirmed DNR status * Renal decision maker,review DPOA document Naming son, [id number] secondary * Likely scenarios comparing ongoing aggressive care with a transition to comfort measures only-review of possibilities for ongoing workup, including feeding tube to continue current aggressive treatment versus transition to comfort focus with hospice services and overall prognosis for limited life expectancy * Questions answered to the best of my ability * Palliative care contact information provided Family endorses that prior to the current acute hospitalization patient was living at home and doing fine. No cognitive deficits, some general age-related decline "slower " but overall doing well. No recent illnesses just had checkup with primary provider in March with no issues identified. Family endorses that patient was very ill at end-of-life and ended up on hospice services. 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 They indicate that the patient would absolutely not want any sort of feeding tube or artificial measures, patient would only agree to further invasive measures if he had a very good chance of rehabilitation and maintaining /returning to his prior level of independence. They requested DNR per patient' s known wishes, and to give the patient another day or so for possible etiology to be identified/improvement if treated; however patient continues to not improve they would NOT want to proceed with feeding tube and would want comfort measures in lieu of further aggressive workup. Assessment and Plan Disease Oriented Problem List: (1) Renal insufficiency (2) Altered mental status, unspecified Symptom Scale: (1) Encephalopathy 0-10 Scale: Unable to quantify (2) Dysphagia 0-10 Scale: Unable to quantify Pertinent Non-Medical Issues Psychosocial: Spiritual:Has not recently been connected to any particular congregation family does not think he would want personnel placement specialist visits at this time. Legal: Patient with altered mental status, encephalopathy of unknown etiology. He is unable to make decisions. Stevie Nair is designated healthcare DPOA, document dated October 2014. Ethical issues impacting care: Important Contacts Stevie Nair Chisholm [phone] Gela Chisholm [phone] , Prognosis This patient was admitted for altered mental status, etiology still not clear. Initial workup negative for infection, CT brain and MRI negative for acute process. He has failed swallow evaluations, would require a feeding tube to maintain nutritional status for ongoing aggressive treatment/management. . Code Status: No Code Plan * Legal decision maker:Patient with altered mental status, encephalopathy of unknown etiology. He is unable to make decisions. Stevie Nair is designated healthcare DPOA, document dated October 2014. * Goals:Family endorses that patient was very ill at end-of-life and ended up on hospice services. 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 They indicate that the patient would absolutely not want any sort of feeding tube or artificial measures, patient would only agree to further invasive measures if he had a very good chance of rehabilitation and maintaining /returning to his prior level of independence. They requested DNR per patient' s known wishes, and to give the patient another day or so for possible etiology to be identified/improvement if treated; however patient continues to not improve they would NOT want to proceed with feeding tube and would want comfort measures in lieu of further aggressive workup. * CODE STATUS: DNR * SYMPTOMS: --Encephalopathy-etiology at this time not known workup thus far negative for sepsis, MRI, CT negative. Not improving during hospital course. ID, neurology following --Dysphagia-- patient failed swallow evaluations--family endorses that in the past patient has had occasional swallowing difficulty though had been eating and maintaining his nutrition adequately prior to current acute hospitalization. He will likely require feeding tube to maintain caloric needs. Family/DPOA has indicated that patient would not want a feeding tube. Patient does not endorse pain or any other complaints. * Palliative care will continue to follow during hospital course as condition evolves, to assist patient/decision-maker with understanding of medical conditions, weighing benefits/burdens of treatment options, for clarification of goals of treatment. Additionally will assist with any symptoms of palliative concern Time Spent Total Floor Time (mins): 60 (chart review, PE, d/w family, d/w nurse ) Thank you for the opportunity to participate in the care of Mr. Chisholm. Attestation To help prompt me to consider important information that might be impacting today's encounter and assessment, information from prior notes written by myself or my colleagues may have been "brought forward" into today's note. My signature on this note, however, is an attestation that I personally performed the exam, history, and/or decision-making noted today, and, unless otherwise indicated, the interactions with patient, family, and staff as well as the review of records all occurred today. I also attest that the listed assessment and stated plan reflect my best clinical judgment today based on the combination of historical information, prior notes, and today's exam/ interactions. When time spent is documented, it refers only to time spent today by the signer, or if indicated, combined time spent today by collaborating physician/nurse practitioner. Zoe Moore Apr 19, 2017 16:11
--- NOTE | 2017-04-19 16:35 | RADRPT ---
EXAM DATE/TIME: 04/19/2017 16:09 [facility] COMPARISON: CT BRAIN W/O CONTRAST, April 15, 2017, 16:45. INDICATIONS : Altered mental status/ RADIATION DOSE: 31.34 CTDIvol (mGy) MEDICAL HISTORY : Seizures. Hypertension. Cardiovascular diseaseCOPD SURGICAL HISTORY : None. ENCOUNTER: Initial ACUITY: 1 day PAIN SCALE: 0/10 LOCATION: cranial TECHNIQUE: Multiple contiguous axial images were obtained of the head. Using automated exposure control and adj ustment of the mA and/or kV according to patient size, radiation dose was kept as low as reasonably a chievable to obtain optimal diagnostic quality images. DICOM format image data is available electro nically for review and comparison. FINDINGS: CEREBRUM: The ventricles are normal for age. No evidence of midline shift, mass lesion, hemorrhage or acute in farction. No extra-axial fluid collections are seen. POSTERIOR FOSSA: The cerebellum and brainstem are intact. The 4th ventricle is midline. The cerebellopontine angle i s unremarkable. EXTRACRANIAL: The visualized portion of the orbits is intact. SKULL: The calvaria is intact. No evidence of skull fracture. CONCLUSION: No acute disease. Juvenal Hutton Jr., MD on April 19, 2017 at 16:31 Board Certified Radiologist. This report was verified electronically.
[2017-04-19] MEDS: MIRTAZAPINE 15 MG TAB PO SCH (20:59)
[2017-04-19] MEDS: PRAVASTATIN SOD 10 MG TAB PO SCH (21:00)
[2017-04-20] VITALS (7 sets, daily range): BP systolic 90–188; BP diastolic 52–91; PULSE 69–141; RESP 12–20; TEMP 97–98; O2SAT 93–95
[2017-04-20] MEDS: ENALAPRILAT 1.25 MG/ML VIAL IV PUSH PRN (01:09)
[2017-04-20] MEDS: SODIUM CHLOR 0.9% 1000 ML INJ 1,000 ML IV SCH ×2 (06:34→19:10)
[2017-04-20] MEDS ORDERED: METOPROLOL TARTRATE 5 MG/5 ML VIAL IV PUSH ONE (06:45)
[2017-04-20] MEDS: METOPROLOL TARTRATE 25 MG TAB PO SCH ×2 (09:00→19:34)
[2017-04-20] MEDS: PANTOPRAZOLE SOD 40 MG DELAYED RELEASE TAB PO SCH ×2 (09:00→19:34)
[2017-04-20] MEDS: SODIUM CHLORIDE 0.9% FLUSH 10 ML FLUSH IV FLUSH SCH ×2 (09:00→19:34)
[2017-04-20] MEDS: ASPIRIN EC 81 MG TABEC PO SCH (09:00)
[2017-04-20] MEDS: HEPARIN SODIUM - SQ 10,000 UNITS/ML VIAL SQ SCH ×2 (10:36→19:35)
[2017-04-20] MEDS ORDERED: METOPROLOL TARTRATE 5 MG/5 ML VIAL IV PUSH PRN (11:00)
[2017-04-20] MEDS ORDERED: RIVASTIGMINE 4.6 MG/24 HOUR PATCH T-DERMAL ONE (12:00)
--- NOTE | 2017-04-20 14:25 | HHI.PR ---
Subjective Remarks Pt is more weak and confused today. Heart is flipping into A-Fib with rates upto 140. Family is at bedside and had a family meeting where they decided against NG tube by following patient's living will. Palliative care has been consulted and is speaking with family. Objective Vital Signs Date Time Temp Pulse Resp B/P (MAP) Pulse Ox O2 Delivery O2 Flow Rate FiO2 04/20/17 07:13 77 04/20/17 06:29 141 04/20/17 03:58 98.0 91 20 155/70 (98) 93 04/20/17 01:47 172/74 (106) 04/20/17 01:03 97.0 91 20 188/91 (123) 93 04/19/17 21:59 98.4 91 19 171/85 (113) 95 04/19/17 20:00 72 04/19/17 16:00 99.0 81 18 161/79 (106) 98 04/19/17 12:00 99.3 75 18 155/64 (94) 99 I/O 04/19/17 04/19/17 04/19/17 04/20/17 04/20/17 04/20/17 07:00 15:00 23:00 07:00 15:00 23:00 Intake Total 480 ml 0 ml 1025 ml 1000 ml Output Total 750 ml 400 ml 250 ml 1200 ml Balance -270 ml -400 ml 775 ml -200 ml Intake Oral 480 ml 0 ml 0 ml 0 ml IV Total 1025 ml 1000 ml Output Urine Total 750 ml 400 ml 250 ml 1200 ml # Bowel Movements 0 0 0 0 Result Diagram: 04/18/17222404/18/172224 Objective Remarks GENERAL: Elderly, not well oriented, more confused today. SKIN: Warm and dry. HEAD: Normocephalic. EYES: No scleral icterus. No injection or drainage. NECK: Supple, trachea midline. No JVD or lymphadenopathy. CARDIOVASCULAR: irregularly irregular,tachycardia rhythm without murmurs, gallops, or rubs. RESPIRATORY: Breath sounds equal bilaterally. No accessory muscle use. GASTROINTESTINAL: Abdomen soft, non-tender, nondistended. MUSCULOSKELETAL: No cyanosis, or edema. BACK: Nontender without obvious deformity. No CVA tenderness. EXTREMITIES: No edema NEURO: Grossly intact, no focal deficits, no abnormal movements, generalized weakness Assessment and Plan Problem List: (1) Gait instability ICD Codes: R26.81 - Unsteadiness on feet Status: Acute (2) Altered mental status, unspecified ICD Codes: R41.82 - Altered mental status, unspecified Status: Acute (3) Renal insufficiency ICD Codes: N28.9 - Disorder of kidney and ureter, unspecified Status: Acute Assessment and Plan Gait Instability with Fall - Fell onto floor with resultant rhabdomyolysis, no fractures - Neuro involved and assisting with investigation, seizures being considered but normal EEG Altered Mental Status - Back to a more confused state - IV antibiotics stopped per ID, all cultures negative - Unable to swallow pills, though CT and MRI of brain were unremarkable. - B12, TSH, Testosterone, RPR ordered - Will try Exelon patch today to see if it helps clear him mentally ( consideration of Lewy Body dementia, Alzheimer type dementia, etc.) Dysphagia - Unable to swallow safely - Failing all repeat swallow studies so far - Living Will states he does not want a feeding tube. Rhabdomyolysis w/ Acute Renal Insufficiency - s/p fall, now resolved COPD - Stable Atrial Fibrillation w/ HTN - Transferred to [facility] for ability to give [place] IV DVT Prophylaxis - On Heparin GI Prophylaxis - Ranitidine Discharge Planning - Will need SNF-Rehab Juan Manuel Wynn MD Apr 20, 2017 12:12 pm
--- NOTE | 2017-04-20 14:32 | HHI.HCPN ---
Reason for visit a. To assist with evaluation and management of symptoms including: Encephalopathy, dysphagia b. To assist medical decision maker(s) with: better understanding of current medical conditions; weighing benefits/burdens of medical treatment options; making medical treatment decisions. Subjective/Interval History Pt seen today to follow up on comfort, goals. S/p repeat CT brain yesterday, neg for acute process. B12 level > 2000. still no clear etiology for AMS, neurology suspects sepsis vs meningitis. Pt less alert today. having hypertension, requiring IV lopressor--> transferred to ICU. Before my arrival to unit, call from stevie Nair requesting follow up. Pt seen in room w DOUG clifford at bedside. Nursing placing IV access. tachycardic 120 during IV placement though back to 90s after. Pt more lethargic today, less interactive than when I saw him yesterday. Voice softer, harder to hear. He is confused. he denies pain, though family reports he c/o his chest hurting to breather earlier today. He is very weak, does not attempt to reposition or lift his head, which I did observe him do yesterday. Explore w DOUG clifford hospital course, poss trajectory going forward. Son feels the decline from yesterday to today tells them the should transition to comfort , pt has expressed that he is "ready to go". They want whatever time he has left to be as comfortable as possible. Review of hospice role/philosophy, they request hospice, [facility] due to familiarity with care center there. They request PRNs for comfort while awaiting hospice transition, they understand balance of sedation vs pain relief. d/w vocational horticulture instructor, call to hospice admissions. hospice orders placed. . Advance Directives Durable Power of [employer] Installer: Copy in medical record Advance Directive Specifics Date completed: November 21, 2014 Health Care Surrogate(s): stevie Nair healthcare DPOA, [id number] Gela as secondary Objective Vital Signs Date Time Temp Pulse Resp B/P (MAP) Pulse Ox O2 Delivery O2 Flow Rate FiO2 04/20/17 07:13 77 04/20/17 06:29 141 04/20/17 03:58 98.0 91 20 155/70 (98) 93 04/20/17 01:47 172/74 (106) 04/20/17 01:03 97.0 91 20 188/91 (123) 93 04/19/17 21:59 98.4 91 19 171/85 (113) 95 04/19/17 20:00 72 04/19/17 16:00 99.0 81 18 161/79 (106) 98 Intake & Output 04/20/17 04/20/17 07:00 19:00 Intake Total 1000 ml Output Total 1450 ml Balance -450 ml Intake Oral 0 ml IV Total 1000 ml Output Urine Total 1450 ml # Bowel Movements 0 Physical Exam CONSTITUTIONAL/GENERAL: Elderly thin male. TUBES/LINES/DRAINS: Peripheral IV Left upper extremity, Fields catheter SKIN: No jaundice, rashes, or lesions. Multiple areas of ecchymosis and small minor skin tears to bilateral upper extremities. Skin very thin, fragile. Skin warm and dry. RESPIRATORY/CHEST: Symmetric, unlabored respirations. scattered rhonchi to upper. Breath sounds equal bilaterally. GASTROINTESTINAL: Abdomen soft, flat ,non-tender, nondistended. No palpable masses. No guarding. Bowel sounds intermittent GENITOURINARY: Without palpable bladder distension. Fields catheter in place. MUSCULOSKELETAL: Extremities without clubbing, cyanosis, or edema. No joint tenderness or effusion noted. NEUROLOGICAL: Awake , though flat/minimally engages. Weak, verbalizes a few words but difficult to understand. Confused. PSYCHIATRIC: flat, no obvious anxiety . Diagnostic Tests Laboratory Laboratory Tests Test 04/18/17 22:25 04/19/17 15:26 White Blood Count 8.6 TH/MM3 (4.0-11.0) Red Blood Count 3.91 MIL/MM3 (4.50-5.90) Hemoglobin 12.0 GM/DL (13.0-17.0) Hematocrit 36.6 % (39.0-51.0) Mean Corpuscular Volume 93.7 FL (80.0-100.0) Mean Corpuscular Hemoglobin 30.8 PG (27.0-34.0) Mean Corpuscular Hemoglobin Concent 32.9 % (32.0-36.0) Red Cell Distribution Width 14.3 % (11.6-17.2) Platelet Count 143 TH/MM3 (150-450) Mean Platelet Volume 7.7 FL (7.0-11.0) Neutrophils (%) (Auto) 71.8 % (16.0-70.0) Lymphocytes (%) (Auto) 17.7 % (9.0-44.0) Monocytes (%) (Auto) 6.8 % (0.0-8.0) Eosinophils (%) (Auto) 3.1 % (0.0-4.0) Basophils (%) (Auto) 0.6 % (0.0-2.0) Neutrophils # (Auto) 6.2 TH/MM3 (1.8-7.7) Lymphocytes # (Auto) 1.5 TH/MM3 (1.0-4.8) Monocytes # (Auto) 0.6 TH/MM3 (0-0.9) Eosinophils # (Auto) 0.3 TH/MM3 (0-0.4) Basophils # (Auto) 0.0 TH/MM3 (0-0.2) CBC Comment DIFF FINAL Differential Comment Blood Urea Nitrogen 18 MG/DL (7-18) Creatinine 0.94 MG/DL (0.60-1.30) Random Glucose 80 MG/DL (74-106) Total Protein 5.8 GM/DL (6.4-8.2) Albumin 3.0 GM/DL (3.4-5.0) Calcium Level 8.6 MG/DL (8.5-10.1) Alkaline Phosphatase 74 U/L (45-117) Aspartate Amino Transf (AST/SGOT) 24 U/L (15-37) Alanine Aminotransferase (ALT/SGPT) 25 U/L (12-78) Total Bilirubin 0.6 MG/DL (0.2-1.0) Sodium Level 143 MEQ/L (136-145) Potassium Level 3.5 MEQ/L (3.5-5.1) Chloride Level 112 MEQ/L (98-107) Carbon Dioxide Level 15.3 MEQ/L (21.0-32.0) Anion Gap 16 MEQ/L (5-15) Estimat Glomerular Filtration Rate 77 ML/MIN (>89) Total Creatine Kinase 71 U/L (39-308) Vitamin B12 Level GREATER THAN 2000 PG/ML Thyroid Stimulating Hormone 3rd Gen 0.630 uIU/ML (0.358-3.740) Rapid Plasma Reagin NON-REACTIVE (NON-REACTVE) Result Diagram: 04/18/17222404/18/172224 Imaging Last Impressions Head CT 04/19/17 0000 Signed Impressions: Service Date/Time: Wednesday, April 19, 2017 16:09 - CONCLUSION: No acute disease. Juvenal Hutton Jr., MD Chest X-Ray 04/15/17 1515 Signed Impressions: Service Date/Time: April 15:33 - CONCLUSION: 1. No acute cardiopulmonary disease. Mani Nicholas MD Cervical Spine CT 04/15/17 1515 Signed Impressions: Service Date/Time: April 16:47 - CONCLUSION: 1. No evidence of acute fracture or traumatic listhesis. 2. Moderate degenerative disc disease. 3. Left sided mild to moderate facet arthropathy. Daniel Thompson MD Radius/Ulna X-Ray 04/15/17 0000 Signed Impressions: Service Date/Time: April 15:36 - CONCLUSION: 1. Very small nearly punctate calcified density projecting along the ulnar aspect of the wrist soft tissues. 2. No acute fracture or dislocation. Mani Nicholas MD Head Magnetic Resonance Angiography 04/15/17 0000 Signed Impressions: Service Date/Time: April 21:47 - CONCLUSION: 1. Suboptimal exam degraded by motion artifact as above. Bernard Arana MD Carotid Artery Ultrasound 04/15/17 0000 Signed Impressions: Service Date/Time: April 21:37 - CONCLUSION: 1. No hemodynamically significant stenosis identified in the carotid arteries bilaterally. Mild visible plaque formation. Bernard Arana MD Brain MRI 04/15/17 0000 Signed Impressions: Service Date/Time: April 21:47 - CONCLUSION: 1. No acute findings. Mild white matter ischemic changes. Bernard Arana MD Assessment and Plan Disease Oriented Problem List: (1) Renal insufficiency (2) Altered mental status, unspecified Symptom Scale: (1) Encephalopathy 0-10 Scale: Unable to quantify (2) Dysphagia 0-10 Scale: Unable to quantify Pertinent Non-Medical Issues Psychosocial: Spiritual:Has not recently been connected to any particular yazdanism family does not think he would want fluid pump operator visits at this time. Legal: Patient with altered mental status, encephalopathy of unknown etiology. He is unable to make decisions. Stevie Nair is designated healthcare DPOA, document dated October 2014. Ethical issues impacting care: Important Contacts Stevie Nair [place] [phone] Gela Chisholm [phone] , Prognosis This patient was admitted for altered mental status, etiology still not clear. Initial workup negative for infection, CT brain and MRI negative for acute process. He has failed swallow evaluations, would require a feeding tube to maintain nutritional status for ongoing aggressive treatment/management. . Code Status: No Code Plan * Legal decision maker:Patient with altered mental status, encephalopathy of unknown etiology. He is unable to make decisions. Stevie Nair is designated healthcare DPOA, document dated October 2014. * Goals:Family son JUAN Nair requests no further escalation of treatment, hospice services for comfort measures only. They would like transfer to a hospice care center today if possible. They want pt to be as comfortable as possible and request comfort medications be available here until pt able to transfer to a care center. * CODE STATUS: DNR * SYMPTOMS: --Encephalopathy-etiology at this time not known workup thus far negative for sepsis, MRI, CT negative. Not improving during hospital course. ID, neurology following --Dysphagia-- patient failed swallow evaluations--family endorses that in the past patient has had occasional swallowing difficulty though had been eating and maintaining his nutrition adequately prior to current acute hospitalization. He will likely require feeding tube to maintain caloric needs. Family/DPOA has indicated that patient would not want a feeding tube- they have requested HOSPICE- comfort only on 04/20/17 --Patient does not endorse pain or any other complaints, does not have hx of chronic pain syndromes, though family indicates he c/o chest pain w breathing earlier today- will order low dose PRN as pt opiate naive, PRN for pain and dyspnea. * Palliative care will continue to follow during hospital course as condition evolves, to assist patient/decision-maker with understanding of medical conditions, weighing benefits/burdens of treatment options, for clarification of goals of treatment. Additionally will assist with any symptoms of palliative concern Time Spent Total Floor Time (mins): 35 (chart review, PE, d/w family, d/w nurse, d/w medical attending. ) Attestation To help prompt me to consider important information that might be impacting today's encounter and assessment, information from prior notes written by myself or my colleagues may have been "brought forward" into today's note. My signature on this note, however, is an attestation that I personally performed the exam, history, and/or decision-making noted today, and, unless otherwise indicated, the interactions with patient, family, and staff as well as the review of records all occurred today. I also attest that the listed assessment and stated plan reflect my best clinical judgment today based on the combination of historical information, prior notes, and today's exam/ interactions. When time spent is documented, it refers only to time spent today by the signer, or if indicated, combined time spent today by collaborating physician/nurse practitioner. Zoe Moore Apr 20, 2017 14:32
[2017-04-20] MEDS ORDERED: LORazepam 2 MG/ML VIAL IV PUSH PRN (15:00)
[2017-04-20] MEDS ORDERED: MORPHINE SULFATE 2 MG/ML INJ IV PUSH PRN (15:00)
[2017-04-20] MEDS: PRAVASTATIN SOD 10 MG TAB PO SCH (19:34)
[2017-04-20] MEDS: MIRTAZAPINE 15 MG TAB PO SCH (19:35)
[2017-04-21] MEDS ORDERED: REMOVE OLD PATCH T-DERMAL ONE (11:59)
[2017-04-22 14:24] LABS: BIOAVAILABLE TESTOSTERONE 8.8 ng/dL
== END 2017-04-20 20:00 | disposition hospice, inpatient (51) | DRG 557 ==
LOC: NEPD 14:43 → NEDA 19:07 → OBSVTOIN 20:09 → N06B 21:06 → N06A 04-16 18:33 → HIMW 04-20 13:05
PROVIDERS: ADMIT Family Medicine; ATTEND Family Medicine
DX: M62.82 Rhabdomyolysis (principal); G93.40 Encephalopathy, unspecified; I48.91 Unspecified atrial fibrillation; R13.10 Dysphagia, unspecified; I10 Essential (primary) hypertension; J43.9 Emphysema, unspecified; D72.829 Elevated white blood cell count, unspecified; S51.811A Laceration without foreign body of right forearm, initial encounter; G25.81 Restless legs syndrome; W01.0XXA Fall on same level from slipping, tripping and stumbling without subsequent striking against object, initial encounter; N28.9 Disorder of kidney and ureter, unspecified; I25.10 Atherosclerotic heart disease of native coronary artery without angina pectoris; Z98.61 Coronary angioplasty status; Z87.891 Personal history of nicotine dependence; Z66 Do not resuscitate; Z51.5 Encounter for palliative care; R25.1 Tremor, unspecified; R26.81 Unsteadiness on feet; K21.9 Gastro-esophageal reflux disease without esophagitis; E78.00 Pure hypercholesterolemia, unspecified; Z79.82 Long term (current) use of aspirin
CPT/HCPCS: 70450; 70544; 70551; 71010; 72125; 73090; 80048; 80053; 80202; 81001; 82247; 82550; 82552; 82565; 82607; 83605; 83735; 84403; 84410; 84443; 84484; 85025; 85610; 85730; 86592; 87040; 93005; 93306; 93880; 95819; 99285; C9113; J0290; J0696; J1100; J1644; J2060; J2270; J3370; J7030; J7040; J7050